=== PATIENT | female | born 1995 | race Caucasian/White ===

== ENCOUNTER 2017-06-08 09:34 | Emergency (ER) | payer BC, OTHER ==
[2017-06-08 09:39] VITALS: BP 140/91
--- NOTE | 2017-06-08 12:58 | ED ---
Back Pain - HPI Summary HPI Summary: Patient here with right lower back pain while bending and twisting to lift a box of coffee while at work yesterday. Noticed some mild pain but was able to continue working. Expressed that his back was little more sore as the night went on however was tolerable. He later engaged in intercourse and when bent forward into position with partner behind, reports back buckling and pain felt in back as well as in the lower abdomen. Denies nausea, vomiting, diarrhea, fevers, chills, radiating pain down into the buttock or leg, numbness, tingling , weakness, change in bowel or bladder habits, saddle paresthesia. Pain does radiate up into flank. 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 No vaginal or rectal bleeding reported - intercourse was consensual and not forceful. Has not had BM today and not passed any gas. Has not tried anything for pain prior to arrival. Admits to 50 pound weight loss recently and thinks body may be changing in regards to strength, flexibility, etc. - History of Current Complaint Chief Complaint: EDBackInjuryPain Stated Complaint: BACK PAIN Time Seen by Provider: 06/08/17 12:02 Hx Obtained From: Patient Pain Intensity: 8 - Allergies/Home Medications Allergies/Adverse Reactions: Allergies Allergy/AdvReac Type Severity Reaction Status Date / Time No Known Allergies Allergy Verified 07/23/13 08:45 PMH/Surg Hx/FS Hx/Imm Hx Previously Healthy: Yes Endocrine/Hematology History: Denies: Hx Anticoagulant Therapy, Hx Blood Disorders Musculoskeletal History: Reports: Other Musculoskeletal History - 50lb weight loss recently Denies: Hx Back Problems - Surgical History Surgery Procedure, Year, and Place: wisdom teeth Infectious Disease History: No Infectious Disease History: Denies: History Other Infectious Disease, Traveled Outside the [place] in Last 30 Days - Family History Known Family History: Positive: None - Social History Occupation: Employed Full-time 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 Negative: Vomiting, Diarrhea, Nausea Genitourinary: Negative Positive: Arthralgia, Myalgia, Decreased ROM Skin: Negative Neurological: Negative Positive: Anxious All Other Systems Reviewed And Are Negative: Yes Physical Exam Triage Information Reviewed: Yes Vital Signs On Initial Exam: Initial Vitals Temp Pulse Resp BP Pulse Ox 98.6 F 106 20 140/91 98 06/08/17 09:37 06/08/17 09:37 06/08/17 09:37 06/08/17 09:37 06/08/17 09:37 Vital Signs Reviewed: Yes Appearance: Positive: Well-Appearing, Pain Distress - lying on stretcher but has pain w/ transition from lying to sitting up/standing - ambulates well once upright, Obese Skin: Positive: Warm, Skin Color Reflects Adequate Perfusion, Dry Head/Face: Positive: Normal Head/Face Inspection Eyes: Positive: Normal, EOMI, Conjunctiva Clear ENT: Positive: Hearing grossly normal, Pharynx normal - mucosa moist Respiratory/Lung Sounds: Positive: Clear to Auscultation, Breath Sounds Present Cardiovascular: Positive: Normal, RRR Abdomen Description: Positive: No Organomegaly, Soft, Other: - generalized mild tenderness over lower ab/pelvis -Rt > Lt - no rebounding Musculoskeletal: Positive: Strength/ROM Intact - pt is able to transitin out pf bed but is slow and deliberate - pain w/ lumbar flexion, Pain @ - Rt QL TTP; spinous pp NTTP Neurological: Positive: Normal, Sensory/Motor Intact, Alert, Oriented to Person Place, Time, CN Intact II-III Psychiatric: Positive: Anxious Diagnostics - Vital Signs Vital Signs Temp Pulse Resp BP Pulse Ox 06/08/17 09:37 98.6 F 106 20 140/91 98 - Laboratory Diagnostic Studies Comment: CT abdomen and pelvis report reveals small amount of free fluid in the pelvis otherwise normal. Lumbar spine with mild degenerative changes w/ OA in facet joints. If sx persist, recommend MR outpt. Lab Statement: Any lab studies that have been ordered have been reviewed, and results considered in the medical decision making process. Back Pain Course/Dx - Diagnoses Provider Diagnoses: Lumbar strain Discharge - Discharge Plan Condition: Stable Disposition: HOME Prescriptions: Cyclobenzaprine TAB* [Flexeril 10 MG TAB*] 10 mg PO TID PRN #15 tab PRN Reason: Pain Ibuprofen TAB* [Motrin TAB* 800 MG] 800 mg PO Q8HR PRN #20 tab PRN Reason: Pain Patient Education Materials: Low Back Strain (ED) Forms: *Work Release Referrals: No Primary Care Phys,NOPCP [Primary Care Provider] - [facility] [place] [facility]FERRAL [Outside] Additional Instructions: Rest, ice alternating with heat, gentle stretches, and medications as directed/ needed. Work on core strengthening exercises once your back pain resolves - inquire with PCP or PT for guidance. Follow-up with PCP if symptoms persist - call today to schedule appointment. *If you develop numbness, tingling, weakness, change in bowel/bladder habits, return to ED
--- NOTE | 2017-06-08 14:08 | RAD ---
INDICATION: Low back pain after intercourse. COMPARISON: There are no prior studies available for comparison. TECHNIQUE: A CT scan of the abdomen and pelvis was performed without intravenous or oral contrast. Contiguous axial sections were obtained from the lung bases through the symphysis pubis. Images were reconstructed in the coronal and sagittal planes. FINDINGS: The lung bases are clear. No pleural effusion is present. The liver and spleen are within normal limits in size without significant focal abnormality on this noncontrast study. No calcified gallstones are seen. The pancreas appears to be within normal limits in size. The adrenal glands and kidneys are normal in size. No renal calculi or hydronephrosis is seen. The aorta is normal in caliber without significant calcific plaque. No significant enlarged retroperitoneal lymph nodes are seen. The stomach, small and large bowel appear nondistended. The appendix is within normal limits. There is mild descending and sigmoid diverticulosis without evidence for diverticulitis. The uterus is anteverted and normal in size. There is a small amount of free intraperitoneal fluid present dependently within the pelvis. No free intraperitoneal air is seen. No significant focal osseous abnormality is seen. IMPRESSION: THERE IS A SMALL AMOUNT OF FREE INTRAPERITONEAL FLUID IN THE PELVIS. THE STUDY IS OTHERWISE UNREMARKABLE.
--- NOTE | 2017-06-08 14:13 | RAD ---
INDICATION: Low back pain after intercourse. COMPARISON: There are no prior studies available for comparison. TECHNIQUE: Contiguous axial sections were obtained beginning above the 1 vertebra and continuing through the L5-S1 disc space. Images were reconstructed in the sagittal and coronal planes. FINDINGS: There is a mild lumbar scoliosis convex toward the right side. There is a prominent Schmorl's node in the superior endplate of the L4 vertebral body. No acute fracture is seen. At the L2-L3 level there is a mild broad-based disc bulge and mild hypertrophic changes within the facet joints. There is mild spinal canal narrowing. Neural foramen appear patent on both sides. It the L3-L4 level there is a mild broad-based disc bulge and mild hypertrophic changes within the facet joints. There is mild spinal canal narrowing. Neural foramen appear patent on both sides. At the L4-L5 level there is a mild broad-based disc bulge and mild hypertrophic changes within the facet joints. There is mild spinal canal narrowing and mild bilateral neural foraminal narrowing. At the L5-S1 level there is a mild broad-based is bulge with suggestion of a small right paramedian disc protrusion. There are moderate hypertrophic changes within the facet joints. No significant spinal canal or neural foraminal narrowing is seen. IMPRESSION: MILD DIFFUSE DEGENERATIVE DISC DISEASE AND FACET OSTEOARTHRITIS IF THE PATIENT'S SYMPTOMS PERSIST PERSIST RECOMMEND FOLLOW-UP MR IMAGING.
[2017-06-08 14:20] LABS: Urine Appearance Clear; Urine Blood Negative (Negative); Urine Color Yellow; Urine Ketones Negative (Negative); Urine Protein Negative (Negative); Urine Specific Gravity 1.016 (1.010-1.030); Urine Urobilinogen Negative (Negative)
[2017-06-08] MEDS ORDERED: Ibuprofen TAB* 800 MG PO ONE (14:42)
[2017-06-08] MEDS ORDERED: Diazepam TAB(*) 5 MG PO ONE (14:42)
== END 2017-06-08 15:41 | disposition home or self-care (01) ==
LOC: ED 09:34
DX: S39.012A Strain of muscle, fascia and tendon of lower back, initial encounter (principal); X58.XXXA Exposure to other specified factors, initial encounter; Y92.9 Unspecified place or not applicable; Y99.0 Civilian activity done for income or pay; F17.210 Nicotine dependence, cigarettes, uncomplicated; Z79.899 Other long term (current) drug therapy
CPT/HCPCS: 72131; 74176; 81003; 87086; 99282; A9270-GY

== ENCOUNTER 2018-01-09 15:46 | Emergency (ER) | payer OTHER ==
[2018-01-09 16:08] VITALS: BP 155/88
[2018-01-09] MEDS ORDERED: Ibuprofen TAB* 600 MG PO ONE (16:28)
--- NOTE | 2018-01-09 16:29 | UC ---
Upper Extremity HPI - HPI Summary HPI Summary: Pt is a 22 year old [id number] transgender patient presenting to with a chief complaint of left shoulder/collarbone and right knee pain due to injury on 01/07/18. The pt was intoxicated, was walking out of [facility] when he fell and hit his head on the pavement, and hit his L shoulder/collarbone on the curb, as well as falling off the bus onto his R knee later in the night. No LOC , No blood HEENT. Pt states later that night had 3-4 episodes of emesis - none since. He was queasy and confused for the rest of the night, and vomited when he got home, but did not vomit yesterday. He took Excedrin for the head pain yesterday with good relief, but none today. Pt states his head feels better. 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 Pt is RHD. no parestheis , no weakness. Pt also with discomfort right knee. Pt states has been walking, no limping. No h/o knee injury. No blood HEENT. Pt's Tdap UTD. 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 NKDA. Patients medications reviewed this visit. - History of Current Complaint Chief Complaint: UCHeadInjury Stated Complaint: HEAD INJURY Time Seen by Provider: 01/09/18 15:59 Hx Obtained From: Patient Onset/Duration: Sudden Onset, Lasting Days, Still Present Severity Initially: Moderate Severity Currently: Moderate Pain Intensity: 5 Pain Scale Used: 0-10 Numeric Location Of Pain: Is Discrete @ - R shoulder/collarbone, as well as L knee. Character: Aching Aggravating Factor(s): Movement Alleviating Factor(s): OTC Meds Associated Signs And Symptoms: Positive: Bruising Related History: Dominant Hand Right - Allergies/Home Medications Allergies/Adverse Reactions: Allergies Allergy/AdvReac Type Severity Reaction Status Date / Time No Known Allergies Allergy Verified 01/09/18 16:07 Home Medications: Home Medications NK [No Home Medications Reported] 01/09/18 [History Confirmed 01/09/18] PMH/Surg Hx/FS Hx/Imm Hx Previously Healthy: Yes Endocrine History: Other Other Endocrine History: HLD Other History Of: Negative For: Anticoagulant Therapy - Surgical History Surgical History: None Surgery Procedure, Year, and Place: wisdom teeth, double masectomy, chest reconstruction. - Family History Known Family History: Positive: Hypertension, Other - addiction/mental health issues, arthritis - Social History Occupation: Employed Part-time - aide at [employer] Lives: With Family Alcohol Use: Weekly Substance Use Type: Cocaine, Marijuana Smoking Status (MU): Current Every Day Smoker Type: Cigarettes Amount Used/How Often: 1/2-1 PPD Have You Smoked in the Last Year: No When Did the Patient Quit Smoking/Using Tobacco: 2 yrs Review of Systems Constitutional: Negative - fever Skin: Bruising, Other - abraison Musculoskeletal: Arthralgia - R knee, L shoulder/collarbone Neurological: Headache All Other Systems Reviewed And Are Negative: Yes Physical Exam - Summary Physical Exam Summary: Vital Signs Reviewed: Yes A+Ox3, no distress Eyes: Conjunctiva Clear, DAYSI. EOM intact and full ENT: Hearing grossly normal TM x 2 clear, mmoist, uvula midline, no exudate, no erythema no hemotymp, no septal hematoma Neck: Positive: Supple Respiratory: Positive: No respiratory distress, No accessory muscle use + CTA throughout no w/r Cardiovascular: RRR nl s1, s2 no m/r CBT <2 sec 2+ DP, PT abd soft + BS nt/nd no guarding, n+ on Musculoskeletal Exam: No pain c/t/l/s Full aROM c spine Pt with pain lateral aspect of collarbone at AC joint No crepitus Full extension, abduction, overhead with mild pain at AC joint + flex/ext elbow, pronate/supinate 5/5 grasp; + SLE + flex/ext knee, ankle + TTP medial aspect patella. No crepitusno edema neg anterior/posterior drawer, neg laxity lateral joint testing Neurological: Positive: Alert, + sensation throughout Psychological: Positive: Normal Response To Family Skin: Positive: no rash, Pt with non suturable abraison to right knee, left palm , contusion x 2 2x2cm each prox, lateral bicep Triage Information Reviewed: Yes Vital Signs: Initial Vital Signs Temp 98.5 F 01/09/18 15:58 Pulse 92 01/09/18 15:58 Resp 19 01/09/18 15:58 BP 155/88 01/09/18 15:58 Pulse Ox 99 01/09/18 15:58 Diagnostics - Radiology L clavicle XRAY Xray Interpretation: No Acute Changes - Unremarkable sternoclavicular and acromioclavicular alignment. Negative for clavicle fracture. Unremarkable soft tissue contours. Radiology Interpretation Completed By: Radiologist - ED physician has reviewed this report. L shoulder XRAY Xray Interpretation: No Acute Changes - Negative for fracture. Normal acromioclavicular and glenohumeral joint alignment. Unremarkable soft tissue contours Radiology Interpretation Completed By: Radiologist - ED physician has reviewed this report. R knee XRAY Xray Interpretation: No Acute Changes - Unremarkable R knee. Radiology Interpretation Completed By: Radiologist - ED physician has reviewed this report. Re-Evaluation - Re-Evaluation Second Eval Comment: reviewed images with pt. no fx. motrin/apap. ice. stretch. work note with restrictions Upper Extremity Course/Dx - Course Course Of Treatment: Blood pressure noted and patient informed to follow up with PCP. Pt with pain right knee along medial patella and left clavicle. Pt neurovascularly intact. Pt with full ROM. will give analgesia. wound care. imaging. reassess - Differential Dx/Diagnosis Provider Diagnoses: right knee contusion. left shoulder. contuion. abraison Discharge - Sign-Out/Discharge Documenting (check all that apply): Patient Departure All imaging exams completed and their final reports reviewed: Yes - Discharge Plan Condition: Stable Disposition: HOME Patient Education Materials: Contusion in Adults (ED), Abrasion (ED) Forms: *Work Release Referrals: [facility] [place] [facility] REFERRAL [Outside] Additional Instructions: - Okay to alternate ibuprofen (Advil, Motrin)600mg and Tylenol 1000mg every 3 hours for pain. Take with food. Do NOT take for more than 4-5 days. Do NOT take ibuprofen if you are taking Aleve - Wash wounds with warm, soapy water. Pat dry, cover with a thin layer of antibiotic ointment and bandage. Monitor your wounds for signs of infection - reddness, red streaking, odor, drainage - wear kavita wrap for comfort and support - Apply ice (wrapped in a towel) 20 minutes at time, 2-3 times a day. After 3 days, change to heat. After warming joints, slow gentle stretching exercises - Pain gets worse for the first 36-48 hours following injury - this is normal. - Contact the physician referral center to schedule a follow-up appointment. - Billing Disposition and Condition Condition: STABLE Disposition: Home - Attestation Statements Document Initiated by Stephanieibe: Yes Documenting Scribe: Judy Riggs Provider For Whom Stephanieibe is Documenting (Include Credential): Sarah Chau MD. Scribe Attestation: Judy Benoit, scribed for Sarah Chau MD. on 01/09/18 at 1856. Scribe Documentation Reviewed: Yes Provider Attestation: The documentation as recorded by the stephanieibeJudy accurately reflects the service I personally performed and the decisions made by me, Sarah Chau MD.
--- NOTE | 2018-01-09 17:09 | RAD ---
Indication: LEFT shoulder pain post fall 3 nights ago. Anterior shoulder pain. Comparison: Clavicle of the same date. Technique: Internal rotation AP, external rotation Grashey, scapular Y, axillary views LEFT shoulder REPORT AND IMPRESSION: #. Negative for fracture. Normal acromioclavicular and glenohumeral joint alignment. Unremarkable soft tissue contours
--- NOTE | 2018-01-09 17:09 | RAD ---
Indication: Fall, abrasion, contusion LEFT clavicle. Comparison: January 09, 2018 LEFT shoulder Technique: AP and cephalad oblique views LEFT clavicle. REPORT AND IMPRESSION: #. Unremarkable sternoclavicular and acromioclavicular alignment. Negative for clavicle fracture. Unremarkable soft tissue contours.
--- NOTE | 2018-01-09 17:09 | RAD ---
Indication: Right knee pain. 4 views of the right knee demonstrates no fracture or dislocation. No other bone or joint abnormality is identified. IMPRESSION: Unremarkable right knee.
== END 2018-01-09 17:30 | disposition home or self-care (01) ==
LOC: EDSEX 15:46 → UCEAST 15:46
DX: S80.01XA Contusion of right knee, initial encounter (principal); S40.012A Contusion of left shoulder, initial encounter; S80.211A Abrasion, right knee, initial encounter; S60.512A Abrasion of left hand, initial encounter; W18.30XA Fall on same level, unspecified, initial encounter; Y93.01 Activity, walking, marching and hiking; Y92.830 Public park as the place of occurrence of the external cause; F17.210 Nicotine dependence, cigarettes, uncomplicated
CPT/HCPCS: 99212; A9270-GY; G0463

== ENCOUNTER 2018-04-25 13:22 | Inpatient (IN) | payer SELFPAY ==
--- NOTE | 2018-04-25 14:01 | ED ---
Psychiatric Complaint - HPI Summary HPI Summary: This pt is a 22 y/o female presenting to [facility] c/o depression and SI today. 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 She notes she has SI thoughts, but denies SI plan. Denies HI. Pt has tried to commit suicide in the past, was 13 y/ o and tried to slit her wrists but the scissors were too dull. PMHx includes bipolar disorder, depression (diagnosed by Dr. Allen). Pt stopped seeing Dr. Allen 1 year ago. She does not take any medications for her depression. - History Of Current Complaint Chief Complaint: EDMentalHealth Time Seen by Provider: 04/25/18 13:51 Hx Obtained From: Patient Onset/Duration: Lasting Days, Still Present Timing: Days Severity Currently: Moderate Character: Depressed Aggravating Factor(s): Recent Stress Alleviating Factor(s): Nothing Associated Signs And Symptoms: Positive: Negative Related History: Positive For: Prior Psychiatric Issues Has Suicidal: Reports: Thoughts. Denies: With A Plan Has Homicidal: Denies: Thoughts, With A Plan Recent Stressor(s): hates her new job - Allergies/Home Medications Allergies/Adverse Reactions: Allergies Allergy/AdvReac Type Severity Reaction Status Date / Time bupropion [From Wellbutrin] AdvReac Altered Verified 04/25/18 14:27 Mental Status oxcarbazepine AdvReac Altered Verified 04/25/18 14:27 [From Trileptal] Mental Status PMH/Surg Hx/FS Hx/Imm Hx Endocrine/Hematology History: Reports: Hx Diabetes Denies: Hx Anticoagulant Therapy, Hx Blood Disorders Musculoskeletal History: Reports: Other Musculoskeletal History - 50lb weight loss recently Denies: Hx Back Problems Psychiatric History: Reports: Hx Depression, Hx Bipolar Disorder - Surgical History Surgery Procedure, Year, and Place: wisdom teeth, double masectomy, chest reconstruction. Infectious Disease History: No Infectious Disease History: Denies: History Other Infectious Disease, Traveled Outside the in Last 30 Days - Family History Known Family History: Positive: Hypertension, Other - addiction/mental health issues, arthritis - Social History Alcohol Use: Weekly Substance Use Type: Reports: Cocaine, Marijuana Hx Tobacco Use: Yes Smoking Status (MU): Current Every Day Smoker Type: Cigarettes Amount Used/How Often: 1/2-1 PPD Have You Smoked in the Last Year: No Review of Systems Negative: Fever, Chills Cardiovascular: Negative Respiratory: Negative Gastrointestinal: Negative Genitourinary: Negative Psychological: Other - POS: SI thoughts Positive: Depressed. Negative: Other - NEG: SI plan All Other Systems Reviewed And Are Negative: Yes Physical Exam - Summary Physical Exam Summary: VITAL SIGNS: Reviewed. GENERAL: Patient is a well-developed and nourished female. Patient is not in any acute respiratory distress. HEAD AND FACE: No signs of trauma. No ecchymosis, hematomas or skull depressions. No sinus tenderness. EYES: PERRLA, EOMI x 2, No injected conjunctiva, no nystagmus. EARS: Hearing grossly intact. Ear canals and tympanic membranes are within normal limits. MOUTH: Oropharynx within normal limits. NECK: Supple, trachea is midline, no adenopathy, no JVD, no carotid bruit, no c- spine tenderness, neck with full ROM. CHEST: Symmetric, no tenderness at palpation LUNGS: Clear to auscultation bilaterally. No wheezing or crackles. CVS: Regular rate and rhythm, S1 and S2 present, no murmurs or gallops appreciated. ABDOMEN: Soft, non-tender. No signs of distention. No rebound, no guarding, and no masses palpated. Bowel sounds are normal. EXTREMITIES: FROM in all major joints, no edema, no cyanosis or clubbing. NEURO: Alert and oriented x 3. No acute neurological deficits. Speech is normal and follows commands. SKIN: Dry and warm Triage Information Reviewed: Yes Vital Signs On Initial Exam: Initial Vitals Temp Pulse Resp BP Pulse Ox 98.9 F 113 18 138/100 98 04/25/18 13:25 04/25/18 13:25 04/25/18 13:25 04/25/18 13:25 04/25/18 13:25 Vital Signs Reviewed: Yes Diagnostics - Vital Signs Vital Signs Temp Pulse Resp BP Pulse Ox 04/25/18 13:25 98.9 F 113 18 138/100 98 - Laboratory Result Diagrams: 04/25/18 13:20 04/25/18 13:20 Lab Statement: Any lab studies that have been ordered have been reviewed, and results considered in the medical decision making process. Re-Evaluation - Re-Evaluation First Eval Re-Evaluation Time: 15:10 Comment: Pt is medically cleared. Course/Dx - Course Assessment/Plan: This pt is a 22 y/o female presenting to [facility] c/o depression and SI today. 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 She notes she has SI thoughts, but denies SI plan. Denies HI. Pt has tried to commit suicide in the past, was 13 y/o and tried to slit her wrists but the scissors were too dull. PMHx includes bipolar disorder, depression (diagnosed by Dr. Allen). Pt stopped seeing Dr. Allen 1 year ago. She does not take any medications for her depression. Blood work w/o a significant abnormality. She is medically cleared. She is awaiting for a [facility]. Patient is hemodynamically stable and A+O x 3. Patient was evaluated by Dr. Murguia, psychiatrist, and recommended admission to his services with a diagnosis of bipolar disorder. - Differential Dx/Clinical Impression Differential Diagnosis/HQI/PQRI: Positive: Anxiety, Depression, Suicidal Ideation Provider Diagnosis: Depression, Bipolar disorder Discharge - Sign-Out/Discharge Documenting (check all that apply): Patient Departure - Admit to [facility] - Discharge Plan Condition: Stable Disposition: PSYCHIATRIC FACILITY[place] - Billing Disposition and Condition Condition: STABLE Disposition: Psychiatric Facility [facility] - Attestation Statements Document Initiated by Scribe: Yes Documenting Scribe: Anneliese Rodriguez Provider For Whom John is Documenting (Include Credential): Vito Babcock MD Scribe Attestation: I, Anneliese Rodriguez, scribed for Vito Babcock MD on 04/25/18 at 2103. Scribe Documentation Reviewed: Yes Provider Attestation: The documentation as recorded by the Anneliese colvin accurately reflects the service I personally performed and the decisions made by me, Vito Babcock MD Status of Scribe Document: Viewed
[2018-04-25 14:21] LABS: ABS Basophils 0.1 10^3/ul (0-0.2); ABS Eosinophils 0.1 10^3/ul (0-0.6); ABS Lymphocytes 1.4 10^3/ul (1.0-4.8); ABS Monocytes 0.3 10^3/ul (0-0.8); ABS Neutrophils 5.9 10^3/ul (1.5-7.7); ABS Nucleated RBC 0 10^3/ul; Hematocrit 41 % (35-47); Hemoglobin 13.5 g/dl (12.0-16.0); Lymphocyte % 18.5 %; Mean Corpuscular HGB Conc 33 g/dl (31-36); Mean Corpuscular Hemoglobin 29 pg (27-31); Mean Corpuscular Volume 88 fL (80-97); Mean Platelet Volume 7.9 fL (7.4-10.4); Nucleated Red Blood Cells % 0; Platelet Count 322 10^3/ul (150-450); Red Blood Count 4.66 10^6/ul (4.00-5.40); Red Cell Distribution Width 13 % (10.5-15); White Blood Count 7.8 10^3/ul (3.5-10.8)
[2018-04-25 14:22] LABS: Urine Appearance Cloudy; Urine Bacteria Absent (Absent); Urine Bilirubin Negative (Negative); Urine Blood 3+ (Negative); Urine Color Yellow; Urine Glucose Negative (Negative); Urine Ketones Negative (Negative); Urine Nitrite Negative (Negative); Urine Protein Negative (Negative); Urine Red Blood Cell 2+(6-10/hpf) (Absent); Urine Specific Gravity 1.032 (1.010-1.030); Urine Urobilinogen Negative (Negative); Urine White Blood Cell Trace(0-5/hpf) (Absent)
[2018-04-25 14:49] LABS: Barbiturates Urine Screen None Detected (None Detect); Benzodiazepine Urine Screen Presumptive Positive (None Detect); Urine Cannabinoids Screen Presumptive Positive (None Detect)
[2018-04-25 14:51] LABS: ALT 25 U/L (7-52); AST 24 U/L (13-39); Albumin 4.3 g/dL (3.2-5.2); Albumin/Globulin Ratio 1.5 (1-3); Alkaline Phosphatase 87 U/L (34-104); Anion Gap 6 mmol/L (2-11); BUN/Creatinine Ratio 17.2 (8-20); Blood Urea Nitrogen 15 mg/dL (6-24); CO2 Carbon Dioxide 25 mmol/L (22-32); Calcium 9.1 mg/dL (8.6-10.3); Chloride 108 mmol/L (101-111); EGFR Non-African American 81.4 (>60); Globulin 2.8 g/dL (2-4); Glucose 99 mg/dL (70-100); Potassium 3.8 mmol/L (3.5-5.0); Sodium 139 mmol/L (135-145); Total Protein 7.1 g/dL (6.4-8.9)
[2018-04-25 14:52] LABS: Alcohol < 10 mg/dL (<10); Salicylate < 2.50 mg/dL (<30)
[2018-04-25 15:00] LABS: TSH (Thyroid Stimulating Horm) 0.64 mcIU/mL (0.34-5.60)
[2018-04-25 15:14] LABS: Acetaminophen 0 mcg/mL
[2018-04-25] MEDS ORDERED: Acetaminophen TAB* 325 MG PO PRN (21:26)
[2018-04-25] MEDS ORDERED: Al Hydrox/Mg Hydrox/Simet LIQ* 30 ML UDC PO PRN (21:27)
[2018-04-25] MEDS ORDERED: Nicotine GUM* 2 MG PO PRN (21:28)
[2018-04-25] MEDS ORDERED: Mouth Piece, Nicotine* 1 EACH CARTRIDGE INH PRN (21:29)
[2018-04-25] MEDS: Nicotine Inhaler* 10 MG AMP INH PRN (23:07)
[2018-04-26] MEDS: Multivitamins/Minerals TAB PO SCH (08:14)
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
[2018-04-26] MEDS: Lithium Carbonate TAB* 300 MG PO SCH (20:17)
[2018-04-26] MEDS ORDERED: Prazosin CAP* 1 MG PO SCH (21:00)
[2018-04-26] MEDS: Ibuprofen TAB* 400 MG PO PRN (23:41)
[2018-04-27] MEDS: Multivitamins/Minerals TAB PO SCH (08:42)
[2018-04-27] MEDS: Lithium Carbonate TAB* 300 MG PO SCH (08:42)
[2018-04-27] MEDS: Nicotine Inhaler* 10 MG AMP INH PRN (08:42)
[2018-04-27 08:44] VITALS: BP 128/77
[2018-04-27] MEDS: Ibuprofen TAB* 400 MG PO PRN (08:45)
[2018-04-27] MEDS ORDERED: Venlafaxine EXT RELEASE CAP* 75 MG PO SCH (09:00)
--- NOTE | 2018-05-01 13:34 | DS ---
CC: [facility] DATE OF ADMISSION: 04/25/2018. DATE OF DISCHARGE: 04/27/2018. PROVIDER: Nga Grewal NP in Psychiatry. SUPERVISING PHYSICIAN: Dr. Magno Quinonez (dictated by Nga Grewal NP). DIAGNOSES: AXIS I: Major depressive disorder. AXIS II: Deferred. CONDITION AT THE TIME OF DISCHARGE: Improved, psychiatrically cleared, stable, participated in some groups, was social with peers. He has done well here psychiatrically. He tolerated the restart of meds very well. He is going to see [facility]. MENTAL STATUS EXAM AT THE TIME OF DISCHARGE: Justo is calm, cooperative, and makes good eye contact. He is alert and oriented times three. His grooming is good. His speech pace is normal. Thought processes are logical. He is not psychotic or delusional. He denies AH, VH, SI and HI. Insight and judgment are good. He is willing to follow-up and urged to see a therapist. DISCHARGE INSTRUCTIONS TO THE PATIENT: A. Medications: Ibuprofen 400 p.o. q.6 hours prn pain, dispensed 120; Lookingglass Carbonate 300 mg b.i.d., dispensed 60; nicotine gum 2 mg q.2 hours prn craving, dispensed 200; Prazosin 1 mg at bedtime, dispensed 30; Venlafaxine 75 mg daily, dispensed 30. B. Diet: Regular. C. Activities: As tolerated. Justo is a smoker, but he has declined a referral to the [facility] Smokers Quitline at this time. If he decides to access this free service in the future, he contact the Quitline toll free at . There are no studies pending at the time of discharge. D. Follow-up care: He has an appointment with [facility] on 05/04/2018 at 2:00 p.m. and another on 05/11/2018 at 9:00 a.m. He is also referred to the [facility] [place] on [address], but he has declined that referral. He has also been referred to the [facility]. E. Substance abuse follow-up: He was referred but declined substance abuse treatment and medication. HOSPITAL COURSE - PART A: Chief complaint: "I have chronic suicidal ideation, but I am really afraid there is going to be nothing when I ." The patient is a 22-year-old female to male transgendered single person with a history of bipolar affective disorder that was diagnosed at age 12 who arrived bought in by a friend and is here on a 9.39 status following threats to kill himself and cutting on his arm and his thigh. Justo has been diagnosed as bipolar since age 12 or [address] Allen. He was seen for years at [facility]. He did find an effective medication regime, but decided to stop it, even though it was working. Justo is currently irritable. He is taking risks such as having "new random sex partners." He cannot sleep well. He sleeps maybe an hour or he crashes after 13 hours. He cries a lot, including at work, so that they send him home. 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 He finds it difficult to work because one day he cries uncontrollably and other days he worries that he will hurt someone when he is transferring them because he feels so strong. At this point, it appears he is experiencing mixed episode with indiscretion, some grandiosity, increased activity, sleep deficit, as well as lack of interest, significant guilt, inability to concentrate, appetite disruption, and suicidal ideation. HOSPITAL COURSE - PART B: Psychiatric treatment was rendered. The patient was admitted to the Adult [facility]al Health Unit and placed on 15 minute checks for safety. Justo did well on the unit and went to some groups and interacted with peers. He tolerated the restart of medications. We restarted Lookingglass, Prazosin , and Venlafaxine. The ibuprofen was started for pain after he was diagnosed with arthritis by another doctor outside the hospital. He wanted to leave the unit rapidly as he discovered he did not have insurance and was unable to pay for his stay here, which increased his distress significantly and interfered with his continued wellness. We did manage to get him connected with an insurance navigator who did get him insurance that will be starting in May. No consults were entered. We did not meet with his family, but he was very eager to leave and he believed that his family would be happy to see him home. In the end, he is much improved with an apparent improved affect, increased interest in living, and significantly less guilt. NGA GREWAL, PROFESSOR OF FOREST PLANNING [id number]/[facility] #: [id number] [facility] HOSPITALHenri
== END 2018-04-27 11:25 | disposition home or self-care (01) | DRG 885 ==
LOC: ED 13:22 → BSU 20:41
PROVIDERS: ADMIT Psychiatry & Neurology Psychiatry; ATTEND Psychiatry & Neurology Psychiatry
DX: F31.9 Bipolar disorder, unspecified (principal); R45.851 Suicidal ideations; E11.9 Type 2 diabetes mellitus without complications; F17.210 Nicotine dependence, cigarettes, uncomplicated; F64.0 Transsexualism; M19.90 Unspecified osteoarthritis, unspecified site; F43.10 Post-traumatic stress disorder, unspecified; Z72.89 Other problems related to lifestyle; Z88.8 Allergy status to other drugs, medicaments and biological substances; Z82.49 Family history of ischemic heart disease and other diseases of the circulatory system; Z82.61 Family history of arthritis; Z90.10 Acquired absence of unspecified breast and nipple
CPT/HCPCS: 36415; 80053; 80307; 80320; 80329; 81003; 81015; 83036; 84443; 84702; 85025; 87086; 99222; 99238; 99284; A9270-GY; G0480

== ENCOUNTER 2018-05-16 17:15 | Emergency (ER) | payer OTHER ==
--- OUTSIDE RECORDS SUMMARY | 2018-05-16 17:47 | XMS REPORT | Continuity of Care Document ---
:1995 Author Organization [facility] Address [address], [place] [id number] Phone Care Team Providers Name Role Phone Laura Griffin NP Unavailable Unavailable Allergies, Adverse Reactions, Alerts Substance Reaction Status No Known Allergies Active Medications Medication Instructions Dosage Effective Dates Status Comments (start - stop) ibuprofen 400 mg 1-2 tab po q 6-8 hrs - Active tablet prn pain (#10) Problems Condition Effective Dates (start - Clinical Status Comments stop) Human immunodeficiency virus [HIV] - counseling Encntr screen for dis of the bld[facility]bld[facility]form org[facility] Encounter for test, result negative Excessive and frequent menstruation with regular cycle Encounter for oth general cnsl and advice on contraception Encntr screen for infections w sexl mode of transmiss Encounter for test, result negative Human immunodeficiency virus [HIV] - counseling Encounter for screening for human - immunodeficiency virus Encounter for oth general cnsl and advice on contraception Encntr screen for infections w sexl mode of transmiss Encntr screen for infections w sexl mode of transmiss Contact w and exposure to infect w a sexl mode of transmiss Encounter for oth general cnsl and advice on contraception Encntr screen for infections w sexl mode of transmiss Contact w and exposure to infect w a sexl mode of transmiss Anemia, Screening Unspecified endocrine disorder Anemia, Screening Unspecified endocrine disorder Unspecified endocrine disorder Anemia, Screening Unspecified endocrine disorder Unspecified endocrine disorder Unspecified endocrine disorder Unspecified endocrine disorder Procedures Procedure Date PREVENTIVE COUNSELING, Under 8 Minutes HEMOGLOBIN URINE TEST OFFICE/OUTPATIENT VISIT, EST OTHER Medical Services 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 STI IBUPROFEN 400 MG TAB #10 CHYLMD DNA, AMP PROBE N.GONORRHOEAE, DNA, AMP PROB Results Test Name Date and Time Measure Units Reference Range Abnormal Flag Status Comments Panel Description: C trach DNA XXX Ql PCR Final Urine CT/GC Negative N Final Performed Combo - CT 00:00:00 by:
&emsp;&ensp;CDD ([id number])

Panel Description: Amplified GC - Urine Final Urine CT/GC Negative N Final : No

Performed Combo - GC 00:00:00 by:
&emsp;&ensp;CDD ([id number])

Panel Description: High Sensitivity Urine Test Final High Sensitivity Urine 11:52:39 NegativeInternal Quality Final Test Control: Positive Panel Description: Hemoglobin Final Hemoglobin 11:52:07 14 gm/dL Final Advance Directives Directive Yes / No Effective Date File Name No information Encounters Encounter Practice Location Reason(s) Diagnoses Date Provider Providers Description For Visit Copied on Encounter OFFICE/OUTPA [facility] Abnormal Human Elias Referring TIENT VISIT, [facility] [place] Vaginal immunodeficiency 8 Laura. 620 Provider: EST [facility] Bleeding virus [HIV] [address] Alexis Cannon (chief counselingEncntr [facility], [facility] [place], 620 complaint) screen for dis of [place], [place], [address], [address], [place], , [place], [facility] [place]/[place], [address]. [place], mechnsmEncounter [id number], for [place] test, result tel:[phone] negativeExcessive [id number] and frequent menstruation with regular cycleEncounter for oth general cnsl and advice on contraceptionEncn tr screen for infections w sexl mode of transmiss [facility] Encounter for Nov- [place] Referring [facility] [place] test, Laura. 620 Provider: [place] result [address] [place] Laura Finger negativeHuman , [place], [address] [place], 620 immunodeficiency [place], [place] virus [HIV] [place], [address], [address], [place], [place], [place], [place], [address]. [place], [place] for screening [id number], for human [place] immunodeficiency tel:[phone] virusEncounter [phone] for oth general cnsl and advice on contraceptionEncn tr screen for infections w sexl mode of transmiss [facility] Encntr screen for Mar- [place] Referring Parenthood [place] infections w sexl - [place]. [address] Provider: [place] mode of 8 [facility], [place] Finger transmissContact [place], [place], [facility], 620 [place], [address]. [address] [place] infect w a sexl tel:[phone] [facility], [address], [place], mode of [id number] [place], [place], [place], transmissEncounte [address]. [id number], r for oth general tel:[phone] [place] cnsl and advice [id number] tel:[phone] on contraception [phone] [facility] Encntr screen for Mar- P[facility] [place] infections w sexl . [place] mode of 5 [address] [place] Finger transmissContact , [facility], [address] w and exposure to [place], [place], [address]. , [place], mode of transmiss tel:+[phone] [place], [id number], [place] tel:[phone] [facility] Anemia, [place] [facility] [place] ScreeningUnspecif . 620 [place] ied endocrine 5 [address] [place] Finger disorder , [facility], [address] [place], [place], [address]. , [place], tel:+1-60 [place], [id number], [place] tel:[phone] [facility] Anemia, Sep-0 [place] [place] ScreeningUnspecif 4-201 Becky. 620 [place] ied endocrine 4 [address] [place] Finger disorder [facility], [address] [place] [address], [place], [address]. [facility], tel:+1-60 [place], [id number], [place] tel:[phone] [facility] Unspecified May-2 [place] [place] endocrine 9-201 Becky. 620 [place] disorder [address] [place] [address], [facility], [address] [place] [address], [place], [address]. [facility], tel:+1-60 [place], [id number], [place] tel:[phone] [facility] Anemia, Mar-2 [facility] [place] ScreeningUnspecif 7-201 Becky. 620 [place] ied endocrine 4 [address] [place] Finger disorderUnspecifi [facility], [facility] ed endocrine [place], [place], [address]. [facility], tel:+1-60 [place], [id number], [place] tel:[phone] [facility] Unspecified Mar-0 [employer] [facility] [place] endocrine 5-201 Davida. 620 Provider: [place] disorder 4 [place] NURSE OR LITZY [address], [facility]. [facility], [address] [place] [address], [place], [address]. [facility], tel:+1-60 [place], [id number], [place] tel:[phone] [facility] Unspecified Feb-2 [facility] [place] endocrine 7-201 Becky. 620 [place] disorder [address] [place] [address], [facility], [address] [place] [address], [place], [address]. [facility], tel:+1-60 [place], [phone], [place] tel:[phone] [facility] Feb-2 [facility] [place] 0-201 Jonna. 620 [place] [address] [place] [address] [facility], [address] [place], [place], [address]. [facility], tel:+1-60 [place], [phone], [place] tel:[phone] Family History Family Member Diagnosis Age At Onset No information Immunizations Vaccine Date Status Comments MMR administered Source: New Immunization Record HPV administered Source: New Immunization Record Hepatitis B administered Source: New Immunization Record Hepatitis A administered Source: New Immunization Record Payers Payer name Insurance type Covered constitution party ID Authorization(s) FPBP PRESUMPTIVE ELIGIBILITY [id number] Social History Type Description Quantity Date Captured Comments Alcohol Use Details Unknown Caffeine Use Details Unknown Tobacco Use Status Unknown Smoking Status Never smoker Non-Smoking Tobacco : No Details Available : No Details Available 2018 Use Details Sex Female Vital Signs Date / Height Weight BMI Pulse Blood Temperature Respiratory Body Head BMI Pulse Inhaled Time: Rate Pressure Rate Surface Circumference percentile Ox Ox Area 148/78 2019 mm[Hg] 11:45 AM Chief Complaint And Reason For Visit Most recent encounter only, dated '04/25/2018 11:20'. Abnormal Vaginal Bleeding (chief complaint). Description: Onset: 1 week ago. Severity level is 5. Location/source of the bleeding is uterine. The patient describes it as clotting. Frequency: menorrhagia. Relieving factors include Has not tried anything. Associated symptoms include bloating, cramps, dizziness and fatigue. Pertinent negatives include abdominal pain, back pain, diarrhea, dyspnea, headache, nausea and Image on phone showed scant endometrial tissue. Additional information: Pt keeps track of cycles. Roughly 25 days apart and 5 days in length. 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 On menses now. Heavy and painful. PW. Reason For Referral Reason For Referral No information Plan Of Treatment Date Type Action Status No information History Of Present Illness Encounter Date Complaint History Of Present Illness Abnormal Vaginal Bleeding Onset: 1 week ago. Severity level is 5. Location/source of the bleeding is uterine. The patient describes it as clotting. Frequency: menorrhagia. Relieving factors include Has not tried anything. Associated symptoms include bloating, cramps, dizziness and fatigue. Pertinent negatives include abdominal pain, back pain, diarrhea, dyspnea, headache, nausea and Image on phone showed scant endometrial tissue. Additional information: Pt keeps track of cycles. Roughly 25 days apart and 5 days in length. 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 On menses now. Heavy and painful. PW. Functional Status Date Functional Assessment No information Medications Administered Medication Instructions Dosage Effective Dates (start - stop) Status Comments No information Instructions Date Instruction Additional Information No information Assessments Type Assessment Date assessment Human immunodeficiency virus [HIV] counseling assessment Encntr screen for dis of the bld/bld-form org/immun mechnsm assessment Encounter for test, result negative assessment Excessive and frequent menstruation with regular cycle assessment Encounter for oth general cnsl and advice on contraception 2018 assessment Encntr screen for infections w sexl mode of transmiss Goals Health Concern Goal Type Priority Status Date No information Medical Equipment Description Device [place] Device Identifier Effective Dates (start - stop ) Status No information Mental Status Date Cognitive Assessment Normal Orientation Health Concerns Observation Date No information Concern Status Date No information
[2018-05-16] MEDS ORDERED: Ketorolac TAB * 10 MG TAB PO ONE (20:02)
--- NOTE | 2018-05-16 21:19 | ED ---
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 States pain radiates down left leg only when walking. Denies incontinence, urinary retention any other pain injury or symptoms. Ankle history is none. - History of Current Complaint Chief Complaint: EDBackInjuryPain Stated Complaint: BACK PAIN Time Seen by Provider: 05/16/18 19:37 Hx Obtained From: Patient Onset/Duration: Sudden Onset Onset/Duration: Started Hours Ago Timing: Constant Severity Initially: Moderate Severity Currently: Moderate Pain Intensity: 6 Pain Scale Used: 0-10 Numeric Character: Sharp, Aching, Throbbing Aggravating Symptom(s): Movement, Walking Alleviating Symptom(s): Rest, Position Associated Signs And Symptoms: Positive: Negative - Allergies/Home Medications Allergies/Adverse Reactions: Allergies Allergy/AdvReac Type Severity Reaction Status Date / Time bupropion [From Wellbutrin] AdvReac Altered Verified 04/25/18 14:27 Mental Status oxcarbazepine AdvReac Altered Verified 04/25/18 14:27 [From Trileptal] Mental Status PMH/Surg Hx/FS Hx/Imm Hx Endocrine/Hematology History: Reports: Hx Diabetes - insulin resistant Denies: Hx Anticoagulant Therapy, Hx Blood Disorders Respiratory History: Reports: Hx Pneumonia GI History: Reports: Hx Gastrointestinal Bleed History: Denies: Hx Dialysis Musculoskeletal History: Reports: Hx Arthritis, Other Musculoskeletal History - spinal disc degeneration Denies: Hx Back Problems Sensory History: Denies: Hx Contacts or Glasses, Hx Hearing Aid Opthamlomology History: Denies: Hx Contacts or Glasses EENT History: Denies: Hx Deafness Neurological History: Denies: Hx Dementia Psychiatric History: Reports: Hx Anxiety, Hx Eating Disorder, Hx Depression, Hx Panic Disorder, Hx Post Traumatic Stress Disorder - cptsd, Hx Inpatient Treatment, Hx Community Mental Health Tx, Hx Bipolar Disorder, Hx Suicide Attempt, Hx of Violent Episodes Against Others, Hx Substance Abuse - Surgical History Surgery Procedure, Year, and Place: wisdom teeth, double masectomy, chest reconstruction. Infectious Disease History: No Infectious Disease History: Denies: History Other Infectious Disease, Traveled Outside the [place] in Last 30 Days - Family History Known Family History: Positive: None, Hypertension, Other - addiction/mental health issues, arthritis - Social History Alcohol Use: Weekly Substance Use Type: Reports: Cocaine, Marijuana Substance Use Comment - Amount & Last Used: marijuana last used 04/25/18, cocaine last used 2 weeks ago Hx Tobacco Use: Yes Smoking Status (MU): Current Every Day Smoker Type: Cigarettes Amount Used/How Often: 1/2-1 PPD Have You Smoked in the Last Year: No Review of Systems Constitutional: Negative Eyes: Negative ENT: Negative Cardiovascular: Negative Respiratory: Negative Gastrointestinal: Negative Genitourinary: Negative Musculoskeletal: Other Skin: Negative Neurological: Negative Psychological: Normal All Other Systems Reviewed And Are Negative: Yes Physical Exam - Summary Physical Exam Summary: No tenderness to palpation along the spine. Mild tenderness to palpation along left paraspinal muscles of the lumbar spine. No tenderness to palpation of left leg. Patient flexes and extends bilateral hips without any indication of pain. PMS intact distally. Triage Information Reviewed: Yes Vital Signs On Initial Exam: Initial Vitals Temp Pulse Resp BP Pulse Ox 99.2 F 115 20 135/90 96 05/16/18 17:27 05/16/18 17:27 05/16/18 17:27 05/16/18 17:27 05/16/18 17:27 Vital Signs Reviewed: Yes Appearance: Positive: Well-Appearing Skin: Positive: Warm Head/Face: Positive: Normal Head/Face Inspection Eyes: Positive: Normal Neck: Positive: Supple Respiratory/Lung Sounds: Positive: Clear to Auscultation Cardiovascular: Positive: Normal Abdomen Description: Positive: Nontender Musculoskeletal: Positive: Normal Neurological: Positive: Normal Psychiatric: Positive: Normal AVPU Assessment: Alert - [place] Coma Scale Best Eye Response: 4 - Spontaneous Best Motor Response: 6 - Obeys Commands Best Verbal Response: 5 - Oriented Coma Scale Total: 15 Diagnostics - Vital Signs Vital Signs Temp Pulse Resp BP Pulse Ox 05/16/18 19:15 98.8 F 98 16 131/93 98 05/16/18 17:27 99.2 F 115 20 135/90 96 - Laboratory Lab Statement: Any lab studies that have been ordered have been reviewed, and results considered in the medical decision making process. 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 States pain radiates down left leg only when walking. Denies incontinence, urinary retention any other pain injury or symptoms. Ankle history is none. Physical exam: No tenderness to palpation along the spine. Mild tenderness to palpation along left paraspinal muscles of the lumbar spine. No tenderness to palpation of left leg. Patient flexes and extends bilateral hips without any indication of pain. PMS intact distally. Patient ambulatory. Vital signs within normal limits. Patient given by mouth Toradol. Patient states he wants to go home asked for work note. - Diagnoses Provider Diagnoses: Back pain Discharge - Sign-Out/Discharge Documenting (check all that apply): Patient Departure - Discharge Plan Condition: Stable Disposition: HOME Patient Education Materials: Low Back Strain (ED), Lower Back Exercises (ED) Forms: *Work Release Referrals: No Primary Care Phys,NOPCP [Primary Care Provider] - Additional Instructions: Take ibuprofen for pain. Follow-up with primary care. Return to the ED for any new or worsening symptoms - Billing Disposition and Condition Condition: STABLE Disposition: Home
[2018-05-16 21:36] VITALS: BP 151/113
== END 2018-05-16 21:36 | disposition home or self-care (01) ==
LOC: ED 17:15
DX: M54.5 Low back pain (principal); Z88.8 Allergy status to other drugs, medicaments and biological substances; F17.210 Nicotine dependence, cigarettes, uncomplicated
CPT/HCPCS: 99282

== ENCOUNTER 2018-06-07 15:56 | Emergency (ER) | payer BC, OTHER ==
[2018-06-07 16:14] VITALS: BP 154/107
--- NOTE | 2018-06-07 16:58 | UC ---
Abdominal Pain Female HPI - HPI Summary HPI Summary: Pt presents with c/o intermittent abdominal pain, painful diarrhea, occasional hard stools, BRBPR over the last several years. Today began with painful diarrhea. Denies fever or chills, denies known hx of IBS, crohns , diverticulitis or colitis. Pt does have hx of ovarian cysts. Pt is transitioning to be male - History of Current Complaint Chief Complaint: UCGI Stated Complaint: STOMACH ISSUES Time Seen by Provider: 06/07/18 16:38 Hx Obtained From: Patient Hx Last Menstrual Period: 05/26/18 ?: No Onset/Duration: Gradual Onset, Lasting Weeks, Still Present Timing: Intermittent Episodes Lasting: Severity Initially: Moderate Severity Currently: Moderate Pain Intensity: 7 Location: Diffuse Radiates: No Character: Cramping, Dull, Sharp Aggravating Factor(s): Nothing Alleviating Factor(s): Nothing Associated Signs and Symptoms: Positive: Negative - Risk Factors Ectopic Risk Factor: Negative Ovarian Torsion Risk Factor: Ovarian Cysts/Tumors Allergies/Adverse Reactions: Allergies Allergy/AdvReac Type Severity Reaction Status Date / Time bupropion [From Wellbutrin] AdvReac Altered Verified 06/07/18 16:14 Mental Status oxcarbazepine AdvReac Altered Verified 06/07/18 16:14 [From Trileptal] Mental Status PMH/Surg Hx/FS Hx/Imm Hx Previously Healthy: Yes Other History Of: Negative For: Anticoagulant Therapy - Surgical History Surgical History: Yes Surgery Procedure, Year, and Place: wisdom teeth, double masectomy, chest reconstruction. - Family History Known Family History: Positive: None, Hypertension, Other - addiction/mental health issues, arthritis - Social History Occupation: Employed Full-time Lives: With Family Alcohol Use: Weekly Substance Use Type: Cocaine, Marijuana Substance Use Comment - Amount & Last Used: marijuana last used 04/25/18, cocaine last used 2 weeks ago Smoking Status (MU): Current Every Day Smoker Type: Cigarettes Amount Used/How Often: 1/2-1 PPD Have You Smoked in the Last Year: No When Did the Patient Quit Smoking/Using Tobacco: 2 yrs - Immunization History Most Recent Influenza Vaccination: February 2018 Most Recent Pneumonia Vaccination: never Review of Systems All Other Systems Reviewed And Are Negative: Yes Constitutional: Positive: Negative Skin: Positive: Negative Eyes: Positive: Negative ENT: Positive: Negative Respiratory: Positive: Negative Cardiovascular: Positive: Negative Gastrointestinal: Positive: Abdominal Pain, Diarrhea Genitourinary: Positive: Negative Motor: Positive: Negative Neurovascular: Positive: Negative Musculoskeletal: Positive: Negative Neurological: Positive: Negative Psychological: Positive: Negative Is Patient Immunocompromised?: No Physical Exam Triage Information Reviewed: Yes Appearance: Well-Appearing, Obese Vital Signs: Initial Vital Signs Temp 98.2 F 06/07/18 16:08 Pulse 88 06/07/18 16:08 Resp 18 06/07/18 16:08 BP 154/107 06/07/18 16:08 Pulse Ox 99 06/07/18 16:08 Vital Signs Reviewed: Yes Eye Exam: Normal ENT Exam: Normal Dental Exam: Normal Neck exam: Normal Respiratory Exam: Normal Cardiovascular Exam: Normal Abdominal Exam: Normal Abdomen Description: Positive: Other: - RLQ tenderness Bowel Sounds: Positive: Present Musculoskeletal Exam: Normal Neurological Exam: Normal Psychological Exam: Normal Skin Exam: Normal Abd Pain Female Course/Dx - Differential Dx/Diagnosis Differential Diagnosis: Appendicitis, Ovarian Cyst, Urinary Tract Infection Provider Diagnosis: Abdominal pain Discharge - Sign-Out/Discharge Documenting (check all that apply): Patient Departure All imaging exams completed and their final reports reviewed: No Studies - Discharge Plan Condition: Stable Disposition: HOME Patient Education Materials: Abdominal Pain (ED) Forms: *Work Release Referrals: [facility] [Outside] - As Soon As Possible No Primary Care Phys,NOPCP [Primary Care Provider] - Additional Instructions: PLEASE ESTABLISH CARE WITH A PRIMARY CARE PROVIDER SOON POSSIBLE. IF YOUR SYMPTOMS WORSEN PLEASE SEEK CARE AT THE CLOSEST EMERGENCY ROOM. - Billing Disposition and Condition Condition: STABLE Disposition: Home
== END 2018-06-07 17:07 | disposition home or self-care (01) ==
LOC: UCEAST 15:56
DX: R10.9 Unspecified abdominal pain (principal); F17.210 Nicotine dependence, cigarettes, uncomplicated; Z88.8 Allergy status to other drugs, medicaments and biological substances
CPT/HCPCS: 99211; G0463

== ENCOUNTER 2018-06-20 22:34 | Emergency (ER) | payer BC ==
[2018-06-20 22:43] VITALS: BP 143/82
--- NOTE | 2018-06-21 00:03 | ED ---
GI/ HPI - HPI Summary HPI Summary: Pt is a 23 y/o M presenting to the ED with a chief complaint of bleeding from his rectum. The pt reports the bleeding has been intermittent for "quite a while " but tonight it was onset around 1999. Typically, he either has thin, soft stools, no stools, or extreme diarrhea. Presently he has not had a bowel movement but he has had blood coming from his rectum. Pt has been checked for hemorrhoids and he had no external ones. Pt reports gas pain. Pt denies pain in rectum or dizziness. - History of Current Complaint Chief Complaint: EDGIBleed Time Seen by Provider: 06/20/18 23:44 Stated Complaint: BLEEDING WHERE I SHOULDNT BE BLEEDING PER PT Hx Obtained From: Patient Hx Last Menstrual Period: 05/26/18 Onset/Duration: Started Days Ago, Still Present Timing: Constant, Lasting Days Severity: Moderate Current Severity: Moderate Pain Intensity: 2 Location of Pain: Diffuse Pain Characteristics: Other: - "gas pains" Associated Signs and Symptoms: Positive: Negative - pain in rectum, Abdominal Pain. Negative: Dizziness, External Hemorrhoid Aggravating Factor(s): Bowel Movement Alleviating Factor(s): Nothing - Additional Pertinent History Primary Care Physician: [id number] - Allergy/Home Medications Allergies/Adverse Reactions: Allergies Allergy/AdvReac Type Severity Reaction Status Date / Time bupropion [From Wellbutrin] AdvReac Altered Verified 06/20/18 22:37 Mental Status oxcarbazepine AdvReac Altered Verified 06/20/18 22:37 [From Trileptal] Mental Status Home Medications: Home Medications [place] Carbonate TAB* 300 mg PO 0600 06/20/18 [History Confirmed 06/20/18] Bir[place] Carbonate TAB* 600 mg PO 2100 06/20/18 [History Confirmed 06/20/18] PMH/Surg Hx/FS Hx/Imm Hx Previously Healthy: No Endocrine/Hematology History: Reports: Hx Diabetes - insulin resistant Denies: Hx Anticoagulant Therapy, Hx Blood Disorders, Hx Thyroid Disease Cardiovascular History: Denies: Hx Hypertension Respiratory History: Reports: Hx Pneumonia Denies: Hx Asthma, Hx Chronic Obstructive Pulmonary Disease (COPD) GI History: Reports: Hx Gastrointestinal Bleed Denies: Hx Ulcer History: Denies: Hx Dialysis Musculoskeletal History: Reports: Hx Arthritis, Other Musculoskeletal History - spinal disc degeneration Denies: Hx Back Problems Sensory History: Denies: Hx Contacts or Glasses, Hx Deafness, Hx Hearing Aid Opthamlomology History: Denies: Hx Contacts or Glasses Neurological History: Denies: Hx Dementia Psychiatric History: Reports: Hx Anxiety, Hx Eating Disorder, Hx Depression, Hx Panic Disorder, Hx Post Traumatic Stress Disorder - cptsd, Hx Inpatient Treatment, Hx Community Mental Health Tx, Hx Bipolar Disorder, Hx Suicide Attempt, Hx of Violent Episodes Against Others, Hx Substance Abuse - Surgical History Surgery Procedure, Year, and Place: wisdom teeth, double masectomy, chest reconstruction. Infectious Disease History: No Infectious Disease History: Denies: Hx Hepatitis, Hx Human Immunodeficiency Virus (HIV), History Other Infectious Disease, Traveled Outside the [place] in Last 30 Days - Family History Known Family History: Positive: Hypertension, Other - addiction/mental health issues, arthritis - Social History Alcohol Use: Weekly Hx Substance Use: Yes Substance Use Type: Reports: Cocaine, Marijuana Substance Use Comment - Amount & Last Used: marijuana last used 04/25/18, cocaine last used 2 weeks ago Hx Tobacco Use: Yes Smoking Status (MU): Current Every Day Smoker Type: Cigarettes Amount Used/How Often: 1/2-1 PPD Have You Smoked in the Last Year: No Review of Systems Negative: Fever Positive: Abdominal Pain, Other - blood in stool Neurological: Negative - dizziness All Other Systems Reviewed And Are Negative: Yes Physical Exam - Summary Physical Exam Summary: VITAL SIGNS: Reviewed. GENERAL: Patient is a well-developed and nourished male who is lying comfortable in the stretcher. Patient is not in any acute respiratory distress. HEAD AND FACE: No signs of trauma. No ecchymosis, hematomas or skull depressions. No sinus tenderness. EYES: PERRLA, EOMI x 2, No injected conjunctiva, no nystagmus. EARS: Hearing grossly intact. Ear canals and tympanic membranes are within normal limits. MOUTH: Oropharynx within normal limits. NECK: Supple, trachea is midline, no adenopathy, no JVD, no carotid bruit, no c- spine tenderness, neck with full ROM. CHEST: Symmetric, no tenderness at palpation LUNGS: Clear to auscultation bilaterally. No wheezing or crackles. CVS: Regular rate and rhythm, S1 and S2 present, no murmurs or gallops appreciated. ABDOMEN: Soft, non-tender. No signs of distention. No rebound no guarding, and no masses palpated. Bowel sounds are normal. EXTREMITIES: FROM in all major joints, no edema, no cyanosis or clubbing. NEURO: Alert and oriented x 3. No acute neurological deficits. Speech is normal and follows commands. SKIN: Dry and warm Rectal: There are no external hemorrhoids and no masses. There is a very mild tinge of blood on examination. Triage Information Reviewed: Yes Vital Signs On Initial Exam: Initial Vitals Temp Pulse Resp BP Pulse Ox 99.1 F 124 20 143/82 95 06/20/18 22:36 06/20/18 22:36 06/20/18 22:36 06/20/18 22:36 06/20/18 22:36 Vital Signs Reviewed: Yes Diagnostics - Vital Signs Vital Signs Temp Pulse Resp BP Pulse Ox 06/20/18 22:36 99.1 F 124 20 143/82 95 - Laboratory Result Diagrams: 06/21/18 00:13 06/21/18 00:13 Lab Statement: Any lab studies that have been ordered have been reviewed, and results considered in the medical decision making process. GIGU Course/Dx - Course Course Of Treatment: Pt is a 23 y/o M presenting to the ED with a chief complaint of bleeding from his rectum. The pt reports the bleeding has been on and off for quite a while but tonight it was onset around 1999. Pt has been checked for hemorrhoids and he had no external ones. Pt reports gas pain. Pt denies pain in rectum or dizziness. Examination shows no external hemorrhoids or masses, but does show a mild tinge of blood. There was no active bleeding in the emergency department. H&H is stable. Pt is asymptomatic and hemodynamically stable. Pt will be sent home with a dx of rectal pain and instructions to follow up with gastroenterology. - Diagnoses Provider Diagnoses: Rectal pain Discharge - Sign-Out/Discharge Documenting (check all that apply): Patient Departure Patient Received Moderate/Deep Sedation with Procedure: No - Discharge Plan Condition: Stable Disposition: HOME Referrals: Jer Arteaga DO [Doctor of Osteopathy] - Additional Instructions: Please follow up with gastroenterology in the next 2-3 days. Also follow up with your primary care physician in the next 2-3 days. Return to the emergency department with any new or worsening symptoms. - Attestation Statements Document Initiated by Scribe: Yes Documenting Scribe: Judy Riggs Provider For Whom Scribe is Documenting (Include Credential): Qasim Singh MD. Scribe Attestation: Judy Benoit, scribed for Qasim Singh MD. on 06/21/18 at 0147. Status of Scribe Document: Ready
[2018-06-21 00:20] LABS: ABS Basophils 0.1 10^3/ul (0-0.2); ABS Eosinophils 0.2 10^3/ul (0-0.6); ABS Monocytes 0.4 10^3/ul (0-0.8); ABS Neutrophils 8.8 10^3/ul (1.5-7.7); ABS Nucleated RBC 0 10^3/ul; Eosinophil % 1.6 %; Hematocrit 39 % (35-47); Hemoglobin 12.9 g/dl (12.0-16.0); Lymphocyte % 17.9 %; Mean Corpuscular HGB Conc 33 g/dl (31-36); Mean Corpuscular Hemoglobin 29 pg (27-31); Mean Corpuscular Volume 88 fL (80-97); Mean Platelet Volume 7.7 fL (7.4-10.4); Nucleated Red Blood Cells % 0; Platelet Count 301 10^3/ul (150-450); Red Blood Count 4.43 10^6/ul (4.00-5.40); Red Cell Distribution Width 14 % (10.5-15); White Blood Count 11.4 10^3/ul (3.5-10.8)
[2018-06-21 00:31] LABS: Activated Partial Thrombo Time 31.9 seconds (26.0-36.3); INR 0.9 (0.77-1.02)
[2018-06-21 00:37] LABS: Albumin 4.1 g/dL (3.2-5.2); Albumin/Globulin Ratio 1.3 (1-3); BUN/Creatinine Ratio 15.6 (8-20); Calcium 9.1 mg/dL (8.6-10.3); EGFR African American 112.4 (>60); EGFR Non-African American 92.9 (>60); Globulin 3.1 g/dL (2-4); Total Bilirubin 0.2 mg/dL (0.2-1.0); Total Protein 7.2 g/dL (6.4-8.9)
== END 2018-06-21 01:29 | disposition home or self-care (01) ==
LOC: ED 22:34
DX: K62.89 Other specified diseases of anus and rectum (principal); R10.9 Unspecified abdominal pain; E11.9 Type 2 diabetes mellitus without complications; Z79.4 Long term (current) use of insulin; F17.210 Nicotine dependence, cigarettes, uncomplicated
CPT/HCPCS: 36415; 80053; 85025; 85610; 85730; 99282

== ENCOUNTER 2018-08-04 14:32 | Emergency (ER) | payer BC ==
[2018-08-04 14:42] VITALS: BP 142/93
--- NOTE | 2018-08-04 15:05 | UC ---
Throat Pain/Nasal Yung HPI - HPI Summary HPI Summary: Sore throat and fever for 2 days. - History of Current Complaint Chief Complaint: UCGeneralIllness Stated Complaint: SORE THROAT Time Seen by Provider: 08/04/18 14:38 Hx Obtained From: Patient Hx Last Menstrual Period: 05/26/18 ?: No Onset/Duration: Gradual Onset Severity: Mild Pain Intensity: 3 Cough: None Associated Signs & Symptoms: Positive: Negative - Epiglottits Risk Factors Epiglottis Risk Factors: Negative - Allergies/Home Medications Allergies/Adverse Reactions: Allergies Allergy/AdvReac Type Severity Reaction Status Date / Time bupropion [From Wellbutrin] AdvReac Altered Verified 08/04/18 14:42 Mental Status oxcarbazepine AdvReac val Verified 08/04/18 14:42 [From Trileptal] PMH/Surg Hx/FS Hx/Imm Hx Previously Healthy: Yes GI/ History: Other - Has a history of gastrointestinal problems. He is scheduled for a colonoscopy on Tuesday. Other History Of: Negative For: Anticoagulant Therapy - Surgical History Surgical History: Yes Surgery Procedure, Year, and Place: wisdom teeth, double masectomy, chest reconstruction. - Family History Known Family History: Positive: Hypertension, Other - addiction/mental health issues, arthritis - Social History Alcohol Use: Weekly Substance Use Type: Cocaine, Marijuana, Other Substance Use Comment - Amount & Last Used: [email or web address] Smoking Status (MU): Current Every Day Smoker Type: eCigarettes Amount Used/How Often: 1/2-1 PPD Have You Smoked in the Last Year: No When Did the Patient Quit Smoking/Using Tobacco: 2 yrs - Immunization History Most Recent Influenza Vaccination: February 2018 Most Recent Pneumonia Vaccination: never Review of Systems All Other Systems Reviewed And Are Negative: Yes Constitutional: Positive: Fever ENT: Positive: Sore Throat Is Patient Immunocompromised?: No Physical Exam Triage Information Reviewed: Yes Appearance: Well-Appearing, No Pain Distress, Well-Nourished Vital Signs: Initial Vital Signs Temp 98.7 F 08/04/18 14:38 Pulse 93 08/04/18 14:38 Resp 18 08/04/18 14:38 BP 142/93 08/04/18 14:38 Pulse Ox 96 08/04/18 14:38 Vital Signs Reviewed: Yes Eye Exam: Normal ENT: Positive: Pharyngeal erythema, TMs normal, Tonsillar swelling, Uvula midline. Negative: Tonsillar exudate, Trismus, Muffled voice, Hoarse voice Neck: Positive: Supple, Nontender, Enlarged Nodes @ - Bilateral tonsillar lymph nodes. Respiratory: Positive: Lungs clear, Normal breath sounds, No respiratory distress, No accessory muscle use Cardiovascular: Positive: RRR, No Murmur, Pulses Normal, Brisk Capillary Refill Musculoskeletal Exam: Normal Neurological Exam: Normal Psychological Exam: Normal Skin Exam: Normal Throat Pain/Nasal Course/Dx - Course Course Of Treatment: Rapid strep test was positive. - Differential Dx/Diagnosis Provider Diagnosis: Strep pharyngitis Discharge - Sign-Out/Discharge Documenting (check all that apply): Patient Departure All imaging exams completed and their final reports reviewed: No Studies - Discharge Plan Condition: Good Disposition: HOME Prescriptions: Amoxicillin PO (*) [Amoxicillin 875 MG (*)] 875 mg PO BID 10 Days #20 tab Patient Education Materials: Strep Throat (DC) Forms: *Work Release Referrals: No Primary Care Phys,NOPCP [Primary Care Provider] - [facility] [Outside] Additional Instructions: Increase fluids, Tylenol every 4 hours for fever or Motrin every 8 hours for fever, change your toothbrush in 24 hours. Definite follow-up with your primary care provider on Tuesday if no improvement. - Billing Disposition and Condition Condition: GOOD Disposition: Home
== END 2018-08-04 15:14 | disposition home or self-care (01) ==
LOC: UCEAST 14:32
DX: J02.0 Streptococcal pharyngitis (principal); Z88.8 Allergy status to other drugs, medicaments and biological substances; F17.290 Nicotine dependence, other tobacco product, uncomplicated
CPT/HCPCS: 87651; 99212; G0463

== ENCOUNTER 2018-08-10 12:34 | Emergency (ER) | payer BC ==
[2018-08-10 12:50] VITALS: BP 142/75
--- NOTE | 2018-08-10 13:12 | ED ---
Throat Pain/Nasal Congestion - HPI Summary HPI Summary: 23-year-old female who identifies as a male presents with eye irritation for the past 2 days. He states he was diagnosed with strep on Tuesday. He states he has had a colonoscopy on Tuesday. He states that he woke up with left eye irritation that spread to the right eye. He states he's been having some watery drainage. never had this before. Denies any trauma or foreign body. no change in vision. - History of Current Complaint Chief Complaint: UCEye Time Seen by Provider: 08/10/18 12:59 - Allergies/Home Medications Allergies/Adverse Reactions: Allergies Allergy/AdvReac Type Severity Reaction Status Date / Time bupropion [From Wellbutrin] AdvReac Altered Verified 08/10/18 12:50 Mental Status oxcarbazepine AdvReac val Verified 08/10/18 12:50 [From Trileptal] PMH/Surg Hx/FS Hx/Imm Hx Endocrine/Hematology History: Reports: Hx Diabetes - insulin resistant Denies: Hx Anticoagulant Therapy, Hx Blood Disorders, Hx Thyroid Disease Cardiovascular History: Denies: Hx Hypertension Respiratory History: Reports: Hx Pneumonia Denies: Hx Asthma, Hx Chronic Obstructive Pulmonary Disease (COPD) GI History: Reports: Hx Gastrointestinal Bleed Denies: Hx Ulcer History: Denies: Hx Dialysis Musculoskeletal History: Reports: Hx Arthritis, Other Musculoskeletal History - spinal disc degeneration Denies: Hx Back Problems Sensory History: Denies: Hx Contacts or Glasses, Hx Legally Blind, Hx Deafness, Hx Hearing Aid Opthamlomology History: Denies: Hx Contacts or Glasses, Hx Legally Blind Neurological History: Denies: Hx Dementia Psychiatric History: Reports: Hx Anxiety, Hx Eating Disorder, Hx Depression, Hx Panic Disorder, Hx Post Traumatic Stress Disorder - cptsd, Hx Inpatient Treatment, Hx Community Mental Health Tx, Hx Bipolar Disorder, Hx Suicide Attempt, Hx of Violent Episodes Against Others, Hx Substance Abuse - Surgical History Surgery Procedure, Year, and Place: wisdom teeth, double masectomy, chest reconstruction. Infectious Disease History: No Infectious Disease History: Denies: Hx Hepatitis, Hx Human Immunodeficiency Virus (HIV), History Other Infectious Disease, Traveled Outside the [place] in Last 30 Days - Family History Known Family History: Positive: Hypertension, Diabetes, Other - thyroid problems , stomach ulcers - Social History Alcohol Use: Occasionally Hx Substance Use: Yes Substance Use Type: Reports: Cocaine, Marijuana, Other Substance Use Comment - Amount & Last Used: adderrall Hx Tobacco Use: Yes Smoking Status (MU): Current Every Day Smoker Type: eCigarettes Amount Used/How Often: 1/2-1 PPD Have You Smoked in the Last Year: No Review of Systems Negative: Fever Positive: Drainage, Erythema Negative: Chest Pain Negative: Shortness Of Breath All Other Systems Reviewed And Are Negative: Yes Physical Exam Triage Information Reviewed: Yes Vital Signs On Initial Exam: Initial Vitals Temp Pulse Resp BP Pulse Ox 98 F 72 15 142/75 98 08/10/18 12:47 08/10/18 12:47 08/10/18 12:47 08/10/18 12:47 08/10/18 12:47 Vital Signs Reviewed: Yes Appearance: Positive: Well-Appearing Skin: Positive: Warm, Dry Head/Face: Positive: Normal Head/Face Inspection Eyes: Positive: EOMI, DAYSI, Conjunctiva Inflammed ENT: Positive: Pharynx normal, TMs normal Respiratory/Lung Sounds: Positive: Clear to Auscultation, Breath Sounds Present Cardiovascular: Positive: Normal, RRR Neurological: Positive: Normal Psychiatric: Positive: Normal Diagnostics - Vital Signs Vital Signs Temp Pulse Resp BP Pulse Ox 08/10/18 12:47 98 F 72 15 142/75 98 - Laboratory Lab Statement: Any lab studies that have been ordered have been reviewed, and results considered in the medical decision making process. EENT Course/Dx - Course Course Of Treatment: 23-year-old female who identifies as a male presents with eye irritation for the past 2 days. He states he was diagnosed with strep on Tuesday. He states he has had a colonoscopy on Tuesday. He states that he woke up with left eye irritation that spread to the right eye. He states he's been having some watery drainage. never had this before. Denies any trauma or foreign body. no change in vision. On exam bilateral conjunctival injection. Watery discharge noted. Will treat as conjunctivitis with Polytrim. told follow up with optho if no improvement. patient understand and agrees with plan. - Differential Diagnoses Differential Diagnoses: Conjunctivitis, Corneal Abrasion, URI/Bronchitis - Diagnoses Provider Diagnoses: Conjunctivitis Discharge - Sign-Out/Discharge Documenting (check all that apply): Patient Departure All imaging exams completed and their final reports reviewed: No Studies - Discharge Plan Condition: Good Disposition: HOME Prescriptions: Polymyx/Trimethoprim OPTH* [Polytrim OPHTH*] 1 drop BOTH EYES QID #1 btl Patient Education Materials: Conjunctivitis (ED) Forms: *Work Release Referrals: [facility] [Outside] Wilner Ritter MD [Medical Doctor] - Additional Instructions: Place 1 drop in eye four times a day for 7 days Wash hands after touching eye Follow up with ophthalmology if no improvement Return to ED if develop any new or worsening symptoms - Billing Disposition and Condition Condition: GOOD Disposition: Home
== END 2018-08-10 13:17 | disposition home or self-care (01) ==
LOC: UCEAST 12:34
DX: H10.33 Unspecified acute conjunctivitis, bilateral (principal); E11.9 Type 2 diabetes mellitus without complications; F41.0 Panic disorder [episodic paroxysmal anxiety]; F32.9 Major depressive disorder, single episode, unspecified; Z88.8 Allergy status to other drugs, medicaments and biological substances; F17.290 Nicotine dependence, other tobacco product, uncomplicated
CPT/HCPCS: 99212; G0463

== ENCOUNTER 2018-11-12 18:07 | Emergency (ER) | payer BC ==
--- NOTE | 2018-11-12 18:13 | UC ---
Lower Extremity/Ankle HPI - HPI Summary HPI Summary: injured lle when jumping down off a building to get to [place]---pain in anterior and wis able to weight bear - History of Current Complaint Chief Complaint: UCLowerExtremity Stated Complaint: L LEG INJURY Time Seen by Provider: 11/12/18 18:11 Hx Obtained From: Patient Hx Last Menstrual Period: 05/26/18 ?: No Onset/Duration: Sudden Onset, Lasting Hours, Still Present Severity Initially: Moderate Severity Currently: Moderate Aggravating Factor(s): Nothing Alleviating Factor(s): Rest Able to Bear Weight: Yes - Allergies/Home Medications Allergies/Adverse Reactions: Allergies Allergy/AdvReac Type Severity Reaction Status Date / Time bupropion [From Wellbutrin] AdvReac Altered Verified 11/12/18 18:16 Mental Status oxcarbazepine AdvReac val Verified 11/12/18 18:16 [From Trileptal] Home Medications: Home Medications chlorproMAZINE TAB* [Thorazine TAB*] 10 mg PO TID 11/12/18 [History Confirmed ] PMH/Surg Hx/FS Hx/Imm Hx Previously Healthy: No Endocrine History: Diabetes Psychological History: Bipolar Disorder Other History Of: Negative For: Anticoagulant Therapy - Surgical History Surgical History: Yes Surgery Procedure, Year, and Place: wisdom teeth, double masectomy, chest reconstruction. - Family History Known Family History: Positive: Hypertension, Diabetes, Other - thyroid problems , stomach ulcers - Social History Occupation: Employed Full-time - [employer] Lives: With Family Alcohol Use: Occasionally Substance Use Type: Cocaine, Marijuana, Other Substance Use Comment - Amount & Last Used: nael Smoking Status (MU): Current Every Day Smoker Type: eCigarettes Amount Used/How Often: 1/2-1 PPD Have You Smoked in the Last Year: No When Did the Patient Quit Smoking/Using Tobacco: 2 yrs - Immunization History Most Recent Influenza Vaccination: February 2018 Most Recent Pneumonia Vaccination: never Review of Systems All Other Systems Reviewed And Are Negative: Yes Constitutional: Positive: Negative Skin: Positive: Negative Eyes: Positive: Negative ENT: Positive: Negative Respiratory: Positive: Negative Cardiovascular: Positive: Negative Gastrointestinal: Positive: Negative Genitourinary: Positive: Negative Motor: Positive: Negative Neurovascular: Positive: Negative Musculoskeletal: Positive: Arthralgia - anterior left lower eg Neurological: Positive: Negative Psychological: Positive: Negative Is Patient Immunocompromised?: No Physical Exam Triage Information Reviewed: Yes Appearance: Well-Appearing, Pain Distress - mild, Obese Vital Signs Reviewed: Yes Eye Exam: Normal ENT Exam: Normal ENT: Positive: Normal ENT inspection, Hearing grossly normal. Negative: Trismus , Muffled voice, Hoarse voice Dental Exam: Normal Neck exam: Normal Neck: Positive: Supple, Nontender Respiratory Exam: Normal Respiratory: Positive: Chest non-tender, No respiratory distress, No accessory muscle use Cardiovascular Exam: Normal Cardiovascular: Positive: RRR, Pulses Normal, Brisk Capillary Refill Musculoskeletal Exam: Normal Musculoskeletal: Positive: Strength Intact, ROM Intact, No Edema Neurological Exam: Normal Neurological: Positive: Alert, Muscle Tone Normal Psychological Exam: Normal Skin Exam: Normal Diagnostics - Radiology No standard instances Radiology Interpretation Completed By: Radiologist - no evience of fracture Lower Extremity Course/Dx - Course Course Of Treatment: Ken wrap , rest ic elevation follow with orthopedic MD prn - Differential Dx/Diagnosis Provider Diagnosis: Pain in left lower leg Discharge - Sign-Out/Discharge Documenting (check all that apply): Patient Departure All imaging exams completed and their final reports reviewed: Yes - Discharge Plan Condition: Stable Disposition: HOME Patient Education Materials: Ibuprofen (By mouth), R.I.C.E. Treatment (ED), Leg Pain (ED) Forms: *Work Release Referrals: Geronimo Young MD [Medical Doctor] - If Needed No Primary Care Phys,NOPCP [Primary Care Provider] - - Billing Disposition and Condition Condition: STABLE Disposition: Home - Attestation Statements Provider Attestation: I was available for consult. This patient was seen by the TRISTIN. The patient was not presented to, seen by, or examined by me. -Manrie
[2018-11-12 18:16] VITALS: BP 00/00
== END 2018-11-12 19:15 | disposition home or self-care (01) ==
LOC: EDSEX → UCEAST 18:07
DX: M79.662 Pain in left lower leg (principal); E11.9 Type 2 diabetes mellitus without complications; F31.9 Bipolar disorder, unspecified; F17.290 Nicotine dependence, other tobacco product, uncomplicated
CPT/HCPCS: 99212; G0463

== ENCOUNTER 2018-11-29 10:58 | Emergency (ER) | payer BC ==
[2018-11-29 11:28] VITALS: BP 135/77
--- NOTE | 2018-11-29 12:30 | UC ---
Eye Complaint HPI - HPI Summary HPI Summary: Patient is a 23-year-old transgendered male, history of diabetes, here with eye symptoms. Patient's had crusting of his bilateral eyes for the past 1.5 weeks. Patient's symptoms are worse on the right. Patient has associated itching. Patient has no redness, purulent drainage, change in vision. Patient does not wear contacts. 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 Occasions reviewed - History of Current Complaint Chief Complaint: UCEye Stated Complaint: EYE COMPLAINT Time Seen by Provider: 11/29/18 12:16 Hx Obtained From: Patient Hx Last Menstrual Period: 05/26/18 Onset/Duration: Gradual Onset Timing: Constant Severity Initially: Mild Pain Intensity: 0 - Allergies/Home Medications Allergies/Adverse Reactions: Allergies Allergy/AdvReac Type Severity Reaction Status Date / Time bupropion [From Wellbutrin] AdvReac Altered Verified 11/29/18 11:29 Mental Status oxcarbazepine AdvReac val Verified 11/29/18 11:29 [From Trileptal] PMH/Surg Hx/FS Hx/Imm Hx Previously Healthy: Yes Other History Of: Negative For: Anticoagulant Therapy - Surgical History Surgical History: Yes Surgery Procedure, Year, and Place: wisdom teeth, double masectomy, chest reconstruction. - Family History Known Family History: Positive: Hypertension, Diabetes, Other - thyroid problems , stomach ulcers , Non-Contributory - Social History Alcohol Use: Occasionally Substance Use Type: Marijuana, Other Substance Use Comment - Amount & Last Used: nael Smoking Status (MU): Current Every Day Smoker Type: eCigarettes Amount Used/How Often: 1/2-1 PPD Have You Smoked in the Last Year: No When Did the Patient Quit Smoking/Using Tobacco: 2 yrs - Immunization History Most Recent Influenza Vaccination: February 2018 Most Recent Pneumonia Vaccination: never Review of Systems All Other Systems Reviewed And Are Negative: Yes Constitutional: Negative: Fever, Chills Skin: Negative: Rash Eyes: Positive: Drainage, Eye Redness. Negative: Blurred Vision, Diplopia, Photophobia ENT: Negative: Sore Throat, Ear Ache, Nasal Discharge Respiratory: Negative: Shortness Of Breath Physical Exam - Summary Physical Exam Summary: Vital Signs Reviewed: Yes A+Ox3, no distress Eyes: Crusting at the bilateral medial canthus. Extraocular movements intact. No conjunctival injection. Pupils equal and reactive to light. No surrounding erythema ENT: Hearing grossly normal neck: supple Respiratory: Positive: No respiratory distress, No accessory muscle use Cardiovascular: skin color reflect adequate perfusion Musculoskeletal Exam: SCHULTZ x 4 without difficulty Neurological: Positive: Alert, ambulatory without difficulty Triage Information Reviewed: Yes Vital Signs: Initial Vital Signs Temp 97.6 F 11/29/18 11:24 Pulse 78 11/29/18 11:24 Resp 20 11/29/18 11:24 BP 135/77 11/29/18 11:24 Pulse Ox 99 11/29/18 11:24 Eye Complaint Course/Dx - Course Course Of Treatment: Patient is here with bilateral conjunctivitis. Patient's symptoms are consistent with bacterial etiology. Patient was prescribed Polytrim ophthalmic drops. - Differential Dx/Diagnosis Differential Diagnosis/HQI/PQRI: Conjunctivitis, Corneal Abrasion, Periorbital Cellulitis, Orbital Cellulitis, Uveitis Provider Diagnosis: Conjunctivitis Discharge - Sign-Out/Discharge Documenting (check all that apply): Patient Departure All imaging exams completed and their final reports reviewed: No Studies - Discharge Plan Condition: Stable Disposition: HOME Prescriptions: Polymyx/Trimethoprim OPTH* [Polytrim OPHTH*] 2 drop BOTH EYES Q6H 7 Days #1 btl Patient Education Materials: Conjunctivitis (ED) Forms: *Work Release Referrals: Marizol Tony DO [Primary Care Provider] - Additional Instructions: Please make sure to wash your hands frequently as your pink eye is very contagious Please use your drops as prescribed Please return if you have any concerning symptoms - Billing Disposition and Condition Condition: STABLE Disposition: Home
== END 2018-11-29 12:30 | disposition home or self-care (01) ==
LOC: EDSEX 10:58 → UCEAST 10:58
DX: H10.9 Unspecified conjunctivitis (principal); F17.210 Nicotine dependence, cigarettes, uncomplicated; F64.0 Transsexualism
CPT/HCPCS: 99212; G0463

== ENCOUNTER 2019-02-13 05:23 | Emergency (ER) | payer BC ==
[2019-02-13] MEDS ORDERED: NS 0.9% 1000 ML** 1,000 ML IV ONE (05:53)
[2019-02-13] MEDS ORDERED: Ondansetron INJ* 2 MG/ML VIAL IV ONE (05:53)
--- NOTE | 2019-02-13 05:54 | ED ---
Nausea/Vomiting/Diarrhea HPI - HPI Summary HPI Summary: Pt. is a 23 y.o male who presents to the ER for nausea, vomiting, diarrhea, and abd. pain that started last night. Pt. notes numerous episodes of vomiting and has not been able to tolerated POs. Pt. notes pain is intermittently and located to epigastric region. Pt. also notes that he was exposed to gonorrhea. Pt. notes one of his sexual partners tested positive last week. Pt denies vaginal discharge. Pt. otherwise denies recent travel or sick contacts. Sxs are moderate in severity. no current modifying factors. - History of Current Complaint Chief Complaint: EDAbdPain Stated Complaint: FEVER/NAUSEA PER PT Time Seen by Provider: 02/13/19 05:37 Hx Obtained From: Patient Hx Last Menstrual Period: 05/26/18 Pain Intensity: 9 - Allergies/Home Medications Allergies/Adverse Reactions: Allergies Allergy/AdvReac Type Severity Reaction Status Date / Time bupropion [From Wellbutrin] AdvReac Altered Verified 02/13/19 05:26 Mental Status oxcarbazepine AdvReac val Verified 02/13/19 05:26 [From Trileptal] Home Medications: Home Medications Seroquel 50 mg tab 50 mg PO DAILY 02/13/19 [History Confirmed 02/13/19] PMH/Surg Hx/FS Hx/Imm Hx Previously Healthy: Yes Endocrine/Hematology History: Reports: Hx Diabetes - type 2 dm Denies: Hx Anticoagulant Therapy, Hx Blood Disorders, Hx Thyroid Disease Cardiovascular History: Denies: Hx Hypertension Respiratory History: Reports: Hx Pneumonia Denies: Hx Asthma, Hx Chronic Obstructive Pulmonary Disease (COPD) GI History: Reports: Hx Gastrointestinal Bleed Denies: Hx Ulcer History: Denies: Hx Dialysis Musculoskeletal History: Reports: Hx Arthritis, Other Musculoskeletal History - spinal disc degeneration Denies: Hx Back Problems Sensory History: Denies: Hx Contacts or Glasses, Hx Legally Blind, Hx Deafness, Hx Hearing Aid Opthamlomology History: Denies: Hx Contacts or Glasses, Hx Legally Blind Neurological History: Denies: Hx Dementia Psychiatric History: Reports: Hx Anxiety, Hx Eating Disorder, Hx Depression, Hx Panic Disorder, Hx Post Traumatic Stress Disorder - cptsd, Hx Inpatient Treatment, Hx Community Mental Health Tx, Hx Bipolar Disorder, Hx Suicide Attempt, Hx of Violent Episodes Against Others, Hx Substance Abuse - Surgical History Surgery Procedure, Year, and Place: wisdom teeth, double masectomy, chest reconstruction. Infectious Disease History: No Infectious Disease History: Denies: Hx Hepatitis, Hx Human Immunodeficiency Virus (HIV), History Other Infectious Disease, Traveled Outside the [place] in Last 30 Days - Family History Known Family History: Positive: Hypertension, Diabetes, Other - thyroid problems , stomach ulcers , Non-Contributory - Social History Occupation: Unemployed Lives: With Family Alcohol Use: Occasionally Hx Substance Use: Yes Substance Use Type: Reports: Marijuana, Other Substance Use Comment - Amount & Last Used: adderrall Hx Tobacco Use: Yes Smoking Status (MU): Current Every Day Smoker Type: eCigarettes Amount Used/How Often: 1/2-1 PPD Have You Smoked in the Last Year: No Review of Systems Constitutional: Negative Negative: Fever ENT: Negative Cardiovascular: Negative Respiratory: Negative Positive: Abdominal Pain, Vomiting, Diarrhea Neurological: Negative All Other Systems Reviewed And Are Negative: Yes Physical Exam Triage Information Reviewed: Yes Vital Signs On Initial Exam: Initial Vitals Temp Pulse Resp BP Pulse Ox 97.2 F 81 18 154/103 97 02/13/19 05:24 02/13/19 05:24 02/13/19 05:24 02/13/19 05:24 02/13/19 05:24 Vital Signs Reviewed: Yes Appearance: Positive: Well-Appearing - Pt. sitting up in bed in NAD. Skin: Positive: Warm, Dry Head/Face: Positive: Normal Head/Face Inspection Eyes: Positive: Normal, EOMI Neck: Positive: Supple Respiratory/Lung Sounds: Positive: Clear to Auscultation, Breath Sounds Present Cardiovascular: Positive: Normal, RRR Abdomen Description: Positive: Other: - Obese. Abd. is soft without reproducible tenderness. Negative clark nign. No pain at mcbur[place] point. No guarding or rebound tenderness. Neurological: Positive: Normal, CN Intact II-III Psychiatric: Positive: Affect/Mood Appropriate Procedures - Sedation Patient Received Moderate/Deep Sedation with Procedure: No Diagnostics - Vital Signs Vital Signs Temp Pulse Resp BP Pulse Ox 02/13/19 05:24 97.2 F 81 18 154/103 97 - Laboratory Result Diagrams: 02/13/19 05:53 02/13/19 05:53 Lab Statement: Any lab studies that have been ordered have been reviewed, and results considered in the medical decision making process. Naus/Vom/Diarrhea Course/Dx - Course Course Of Treatment: Pt. with N/V/D. Afebrile and well appearing. Benign abd. exam without reproducible pain. Pt. given IV fluids and zofran. Labs show mild leukocytosis of 14. CRP minimally elevated at 11. U/A contaminated, will send for culture. Pening gc/chlamydia. On re-exam pt. is feeling much better. Tolerating POs. Pt. would like prophylactic treatment given known exposure, given PO azithromycin and rocephin. To f.u with pcp. Will return to ER for increased pain, vomting, fever, or if conerned. Pt. understands and agrees with plan. - Differential Dx/Diagnosis Differential Diagnoses - Female: Appendicitis, STD, Gastroenteritis (Viral), Gastroenteritis (Bacterial), Dehydration, Cholelithiasis Provider Diagnosis: Gastroenteritis, STD exposure Condition At Discharge: Improved Discharge ED - Sign-Out/Discharge Documenting (check all that apply): Patient Departure - Discharge Plan Condition: Improved Disposition: HOME Prescriptions: Ondansetron TAB* [Zofran 4 MG Tab*] 4 mg PO Q6H PRN #12 tab PRN Reason: Nausea Patient Education Materials: Sexually Transmitted Diseases (ED), Gastroenteritis (ED) Referrals: Marizol Tony DO [Primary Care Provider] - Additional Instructions: Follow up with PCP in 2-3 days if symptoms persist Increase fluids and rest Clear liquid diet x 24 hours Will call if gonorrhea/chlamydia testing is positive Always use sexual protection Return to ER for increased pain, vomiting, fever, or if concerned - Billing Disposition and Condition Condition: IMPROVED Disposition: Home
[2019-02-13 06:04] LABS: ABS Eosinophils 0.2 10^3/ul (0-0.6); ABS Lymphocytes 1.4 10^3/ul (1.0-4.8); ABS Monocytes 0.5 10^3/ul (0-0.8); ABS Neutrophils 11.8 10^3/ul (1.5-7.7); Eosinophil % 1.4 %; Hematocrit 40 % (35-47); Lymphocyte % 10.2 %; Mean Corpuscular HGB Conc 33 g/dL (31-36); Mean Corpuscular Hemoglobin 29 pg (27-31); Mean Corpuscular Volume 88 fL (80-97); Platelet Count 291 10^3/uL (150-450); Red Cell Distribution Width 14 % (10-15)
[2019-02-13 06:18] LABS: Urine Appearance Cloudy; Urine Bacteria Absent (Absent); Urine Bilirubin Negative (Negative); Urine Blood Negative (Negative); Urine Color Yellow; Urine Glucose Negative (Negative); Urine Ketones Negative (Negative); Urine Nitrite Negative (Negative); Urine Protein Negative (Negative); Urine Red Blood Cell Absent (Absent); Urine Specific Gravity 1.032 (1.010-1.030); Urine Squamous Epithelial Cell Present (Absent); Urine Urobilinogen Negative (Negative); Urine White Blood Cell 2+(11-20/hpf) (Absent)
[2019-02-13 06:21] LABS: Albumin 4.2 g/dL (3.2-5.2); Albumin/Globulin Ratio 1.4 (1-3); BUN/Creatinine Ratio 21.3 (8-20); C Reactive Protein 9.99 mg/L (<8.01); Calcium 9.3 mg/dL (8.6-10.3); EGFR African American 107.6 (>60); EGFR Non-African American 88.9 (>60); Potassium 3.8 mmol/L (3.5-5.0); Total Bilirubin 0.4 mg/dL (0.2-1.0); Total Protein 7.2 g/dL (6.4-8.9)
[2019-02-13 06:27] LABS: HCG Pregnancy 1.31 mIU/mL
[2019-02-13] MEDS ORDERED: Azithromycin TAB* 250 MG PO ONE (07:32)
[2019-02-13] MEDS ORDERED: cefTRIAXone VIAL(*) 250 MG VIAL IM ONE (07:32)
[2019-02-13] MEDS ORDERED: Lidocaine 1% MPF ** 5 ML VIAL IM ONE (07:32)
[2019-02-13 07:39] VITALS: BP 120/104
[2019-02-13 13:24] LABS: Chlamydia trachomatis NAA Positive (Negative); Neisseria gonorrhoeae (GC) NAA Negative (Negative)
--- NOTE | 2019-02-13 13:53 | ED ---
Imaging and Labs Follow Up Follow Up Type: Labs/Cultures Labs/Culture Result: Positive chlamydia. Patient Communication/Plan: Pt. was ordered prophylactically in ED with azithromycin and rocephin but apparently did not receive before the was discharged. I called and spoke with pt. today at 1354 and informed of results. 1gm azithromycin sent to pharmacy. Advised pt. all sexual partners need to be tested and treated. Advised to always use sexual protection. Pt. understands and agrees with plan. Provider Diagnoses: Gastroenteritis, STD exposure
== END 2019-02-13 07:38 | disposition home or self-care (01) ==
LOC: ED 05:23
DX: K52.9 Noninfective gastroenteritis and colitis, unspecified (principal); A74.9 Chlamydial infection, unspecified; Z88.8 Allergy status to other drugs, medicaments and biological substances; Z79.899 Other long term (current) drug therapy; E11.9 Type 2 diabetes mellitus without complications; F41.9 Anxiety disorder, unspecified; Z90.13 Acquired absence of bilateral breasts and nipples; F17.290 Nicotine dependence, other tobacco product, uncomplicated
CPT/HCPCS: 36415; 80053; 81003; 81015; 83690; 84702; 85025; 86140; 87086; 87491; 87591; 96361; 96374; 99282; J2405

== ENCOUNTER 2019-04-09 16:10 | Emergency (ER) | payer BC ==
[2019-04-09 16:30] LABS: ABS Eosinophils 0.1 10^3/ul (0-0.6); ABS Lymphocytes 1.3 10^3/ul (1.0-4.8); ABS Monocytes 0.5 10^3/ul (0-0.8); ABS Neutrophils 7.3 10^3/ul (1.5-7.7); Eosinophil % 1.3 %; Hematocrit 38 % (35-47); Hemoglobin 12.6 g/dL (12.0-16.0); Lymphocyte % 14.5 %; Mean Corpuscular HGB Conc 34 g/dL (31-36); Mean Corpuscular Hemoglobin 30 pg (27-31); Mean Corpuscular Volume 89 fL (80-97); Mean Platelet Volume 8.1 fL (7.4-10.4); Platelet Count 331 10^3/uL (150-450); Red Blood Count 4.25 10^6 /uL (3.70-4.87); Red Cell Distribution Width 14 % (10-15); White Blood Count 9.3 10^3/uL (3.5-10.8)
--- NOTE | 2019-04-09 16:38 | ED ---
- HPI Summary HPI Summary: 23 year old F arriving via private car from [facility] to r/o ectopic . Patient had positive test last week. LNMP 02/22/19. Has regular menstrual cycles. Developed cramping on left side several days ago, now resolved. No vaginal bleeding. Went to [facility] earlier today where she had confirmed with urinalysis and an ultrasound done which was inconclusive. Symptoms rated 0/10 in severity. Symptoms aggravated by nothing. Symptoms alleviated by nothing. Notes that she may have been several years ago but is unsure. Patient is transitioning from female to male. Not on hormone medications currently. PMHx reviewed. Surgical hx double mastectomy and wisdom teeth. Medications reviewed. - History of Current Complaint Chief Complaint: EDOBProblems Stated Complaint: R/O ECTOPIC PER PT Time Seen by Provider: 04/09/19 16:30 Hx Obtained From: Patient Onset/Duration: Started Days Ago, Still Present Timing: Constant Current Severity: None Pain Intensity: 0 Location of Pain: Left Side Aggravating Factors: Nothing Alleviating Factors: Nothing - Assessment Hx Now: No - Additional Pertinent History Primary Care Physician: [id number] - Allergies/Home Medications Allergies/Adverse Reactions: Allergies Allergy/AdvReac Type Severity Reaction Status Date / Time bupropion [From Wellbutrin] AdvReac Altered Verified 04/09/19 16:25 Mental Status oxcarbazepine AdvReac val Verified 04/09/19 16:25 [From Trileptal] Home Medications: Home Medications [place] Carbonate TAB* 600 mg PO BID 04/09/19 [History Confirmed 04/09/19] Propranolol TAB* [Inderal TAB*] 10 mg PO TID 04/09/19 [History Confirmed ] QUEtiapine TAB* [Seroquel 25 MG TAB*] 25 mg PO BEDTIME 04/09/19 [History Confirmed 04/09/19] Venlafaxine EXT RELEASE CAP* [Effexor Xr CAP*] 37.5 mg PO DAILY 04/09/19 [ History Confirmed 04/09/19] Venlafaxine EXT RELEASE CAP* [Effexor Xr CAP*] 75 mg PO DAILY 04/09/19 [History Confirmed 04/09/19] PMH/Surg Hx/FS Hx/Imm Hx Endocrine/Hematology History: Reports: Hx Diabetes - type 2 dm Denies: Hx Anticoagulant Therapy, Hx Blood Disorders, Hx Thyroid Disease Cardiovascular History: Denies: Hx Hypertension Respiratory History: Reports: Hx Pneumonia Denies: Hx Asthma, Hx Chronic Obstructive Pulmonary Disease (COPD) GI History: Reports: Hx Gastrointestinal Bleed Denies: Hx Ulcer History: Denies: Hx Dialysis Musculoskeletal History: Reports: Hx Arthritis, Other Musculoskeletal History - spinal disc degeneration Denies: Hx Back Problems Sensory History: Denies: Hx Contacts or Glasses, Hx Legally Blind, Hx Deafness, Hx Hearing Aid Opthamlomology History: Denies: Hx Contacts or Glasses, Hx Legally Blind Neurological History: Denies: Hx Dementia Psychiatric History: Reports: Hx Anxiety, Hx Eating Disorder, Hx Depression, Hx Panic Disorder, Hx Post Traumatic Stress Disorder - cptsd, Hx Inpatient Treatment, Hx Community Mental Health Tx, Hx Bipolar Disorder, Hx Suicide Attempt, Hx of Violent Episodes Against Others, Hx Substance Abuse - Surgical History Surgery Procedure, Year, and Place: wisdom teeth, double masectomy, chest reconstruction. Infectious Disease History: No Infectious Disease History: Denies: Hx Hepatitis, Hx Human Immunodeficiency Virus (HIV), History Other Infectious Disease, Traveled Outside the [place] in Last 30 Days - Family History Known Family History: Positive: Hypertension, Diabetes, Other - thyroid problems , stomach ulcers - Social History Alcohol Use: Occasionally Hx Substance Use: Yes Substance Use Type: Reports: Marijuana Substance Use Comment - Amount & Last Used: adderrall Hx Tobacco Use: Yes Smoking Status (MU): Current Every Day Smoker Type: eCigarettes Amount Used/How Often: 1/2-1 PPD Have You Smoked in the Last Year: No Review of Systems Negative: Fever Genitourinary: Negative - bleeding, Other - left sided cramping All Other Systems Reviewed And Are Negative: Yes Physical Exam - Summary Physical Exam Summary: Constitutional: Well-developed, Well-nourished, Alert. (-) Distressed Skin: Warm, Dry HENT: Normocephalic; Atraumatic Eyes: Conjunctiva normal Neck: Musculoskeletal ROM normal neck. (-) JVD, (-) Stridor, (-) Nuchal rigidity Cardio: Rhythm regular, rate normal, Heart sounds normal; Intact distal pulses; Radial pulses are 2+ and symmetric. (-) Murmur Pulmonary/Chest wall: Effort normal. (-) Respiratory distress, (-) Wheezes, (-) Rales Abd: Soft, (-) tenderness, (-) Distension, (-) Guarding, (-) Rebound Musculoskeletal: (-) Edema Lymph: (-) Cervical adenopathy Neuro: Alert, Oriented x3 Psych: Mood and affect Normal - Physical Exam Triage Information Reviewed: Yes Vital Signs Reviewed: Yes Procedures - Sedation Patient Received Moderate/Deep Sedation with Procedure: No Diagnostics - Vital Signs Vital Signs Temp Pulse Resp BP Pulse Ox 04/09/19 16:21 99 F 82 18 147/85 97 - Laboratory Lab Results: Lab Results 04/09/19 Range/Units 16:21 WBC 9.3 (3.5-10.8) 10^3/uL RBC 4.25 (3.70-4.87) 10^6 /uL Hgb 12.6 (12.0-16.0) g/dL Hct 38 (35-47) % MCV 89 (80-97) fL MCH 30 (27-31) pg MCHC 34 (31-36) g/dL RDW 14 (10-15) % Plt Count 331 (150-450) 10^3/uL MPV 8.1 (7.4-10.4) fL Neut % (Auto) 78.8 % Lymph % (Auto) 14.5 % Clay % (Auto) 5.0 % Eos % (Auto) 1.3 % Baso % (Auto) 0.4 % Absolute Neuts (auto) 7.3 (1.5-7.7) 10^3/ul Absolute Lymphs (auto) 1.3 (1.0-4.8) 10^3/ul Absolute Monos (auto) 0.5 (0-0.8) 10^3/ul Absolute Eos (auto) 0.1 (0-0.6) 10^3/ul Absolute Basos (auto) 0.0 (0-0.2) 10^3/ul Absolute Nucleated RBC 0.0 10^3/ul Nucleated RBC % 0.0 Result Diagrams: 04/09/19 16:21 04/09/19 16:21 Lab Statement: Any lab studies that have been ordered have been reviewed, and results considered in the medical decision making process. - Ultrasound Transvaginal Ultrasound Interpretation Completed By: Radiologist Summary of Ultrasound Findings: 1. There is what appears to be a gestational sac averaging 3 mm in dimension corresponding to a gestational age of 4 weeks and 6 days. There is no pole or yolk sac identified within the gestational sac. The differential diagnosis includes a gestation that is too early to visualize, spontaneous or ectopic . 2. Immediately posterior to the lower uterine segment and cervix is a cystic structure measuring 3.9 cm in greatest dimension. This is either free fluid, not unusual for a woman of reproductive age, or a adnexal cyst. Less likely this could be an extrauterine gestational sac in the setting of ectopic . I recommend close maternal follow-up, potentially with additional pelvic ultrasound imaging, and trending of the beta hCG. ED physician has reviewed this report. Course/Dx - Course Course Of Treatment: 23-year-old female female transgender patient presents with positive test. - Beta hCG in the 160s, ultrasound inconclusive. Differential includes early , versus spontaneously miscarriage versus ectopic. Abdomen soft, Hb stable, vital signs stable. Lower suspicion for ectopic. No vaginal bleeding. Patient aware that she is to return for repeat follow-up labs and possible repeat ultrasound. She will also return for abdominal pain, vaginal bleeding, or if she is concerned. - Diagnoses Provider Diagnoses: Positive test - Provider Notifications Discussed Care Of Patient With: Mariah Olivares Time Discussed With Above Provider: 18:20 Instructed by Provider To: Other - Dr. Olivares OBGYN recommended repeat hCG and possible US at the end of the week and follow up from OBGYN. Discharge ED - Sign-Out/Discharge Documenting (check all that apply): Patient Departure - Discharge Plan Condition: Stable Disposition: HOME Patient Education Materials: (ED) Referrals: Marizol Tony DO [Primary Care Provider] - Additional Instructions: You were seen in the emergency department for positive pertinency test. Your ultrasound did not show a definitive , and we cannot exclude ectopic, we recommended follow-up with OB for repeat hCG in the next 3-4 days and possible ultrasound. If any studies were not completed at the time of discharge you will be called with the relevant results. Please follow up with your primary care doctor in next 2-3 days and return to emergency department for abdominal pain, vaginal bleeding,or concerning symptoms. It was a pleasure taking care of you today. - Billing Disposition and Condition Condition: STABLE Disposition: Home - Attestation Statements Document Initiated by John: Yes Documenting Scribe: Meli Alonso Provider For Whom Scribe is Documenting (Include Credential): Jeffery Chong MD Scribe Attestation: I, Meli Alonso, scribed for Jeffery Chong MD on 04/10/19 at 0722. Scribe Documentation Reviewed: Yes Provider Attestation: The documentation as recorded by the scribe, Meli Alonso accurately reflects the service I personally performed and the decisions made by me, Jeffery Chong MD Status of Scribe Document: Viewed
[2019-04-09 16:56] LABS: Albumin 4.2 g/dL (3.2-5.2); Albumin/Globulin Ratio 1.4 (1-3); BUN/Creatinine Ratio 11.5 (8-20); Calcium 8.8 mg/dL (8.6-10.3); EGFR African American 110.7 (>60); EGFR Non-African American 91.5 (>60); Globulin 3.1 g/dL (2-4); HCG Pregnancy 168.53 mIU/mL; Potassium 3.8 mmol/L (3.5-5.0); Total Bilirubin 0.3 mg/dL (0.2-1.0); Total Protein 7.3 g/dL (6.4-8.9)
--- OUTSIDE RECORDS SUMMARY | 2019-04-09 17:25 | XMS REPORT ---
:1995 Author Organization [facility] Care Team Providers Name Role Phone AayushleliaGeniamarilee Primary Care Physician Unavailable Allergies, Adverse Reactions, Alerts Allergy Code CodeSystem Reaction Severity Criticality Status Start Substance Date Moderate Medications Medication Medication Medication Start Stop Route Dose Status Fill Code CodeSystem Date Date Instructions lithium 19771124 RxNorm 2018- oral 300 mg 2 active Take 2 carbonate 11-07 10-19 capsule capsule by twice a mouth twice a day day for 30 day(s) chlorpromazine 005492 RxNorm 2019- oral 10 mg 1 completed Take 1 tablet 09-12-27 tablet by mouth three three times a times a day as needed day for 30 day(s) lithium 19771124 RxNorm 2018- oral 300 mg completed for 30 carbonate - 06-27 capsule day(s) venlafaxine 165265 RxNorm 2018- oral 75 mg active for 30 -24 10-19 capsule, day(s) extended release 24hr lithium 19771124 RxNorm 2018- oral 300 mg completed for 30 carbonate 4-30 07-23 capsule day(s) chlorpromazine 211424 RxNorm 2018- oral 10 mg completed for 30 7- 07-23 tablet day(s) venlafaxine 125916 RxNorm 2019- oral 75 mg 1 completed Take 1 tablet 11-07 07-24 tablet by mouth once extended a day for 30 release day(s) 24hr once a day prazosin 099903 RxNorm 2019- oral 1 mg 1 active Take 1 8-20 10-19 capsule capsule by at mouth at bedtime bedtime for 30 day(s) venlafaxine 434924 RxNorm 2019- oral 75 mg completed for 30 3- 06-27 tablet day(s) chlorpromazine 009966 RxNorm 2019-0 2019- oral 10 mg 1 active Take 1 tablet 11-07 10-19 tablet by mouth twice a twice a day day as needed for 30 day(s) venlafaxine 009018 RxNorm 2018- oral 75 mg completed for 30 08-15 07-23 tablet day(s) prazosin 916714 RxNorm 2018- oral 1 mg completed for 30 10-24 08-20 capsule day(s) Problems Problem Name Code CodeSystem Alternate Alternate Start End Status Narrative Code CodeSystem Date Date Bipolar [id number] SNOMED-CT Active affective 3-22 disorder, unspecified Relevant diagnostic tests/laboratory data Narrative No Information Procedures Procedure Code CodeSystem Target Date of Status Service Device Device Device Name Site Procedure Delivery Code Name UID Location Psychotherap [id number] SNOMED-CT () 2018-09-12 complete Mental y, 30 87 d Health- minutes with [facility] patient [address] with an [facility] [address], and [facility], service [id number] (List [id number] separately in addition to the code for primary procedure) Psychotherap [id number] SNOMED-CT () 2018-12-25 complete Mental y, 45 04 d Health- minutes with [facility] patient [address], [id number] Psychotherap [id number] SNOMED-CT () 2019-01-15 complete Mental y, 45 04 d Health- minutes with [facility] patient [address], [id number] [id number] Psychotherap [id number] SNOMED-CT () 2018-11-13 complete Mental y, 45 04 d Health- minutes with [facility] patient [address], [id number] [id number] Psychotherap [id number] SNOMED-CT () 2018-11-28 complete Mental y, 45 04 d Health- minutes with [facility] patient [address], [id number] [phone] Psychotherap [id number] SNOMED-CT () 2018-12-05 complete Mental y, 45 04 d Health- minutes with [facility] patient [address], [id number] [id number] Preventive [id number] SNOMED-CT () 2018-12-06 complete Mental medicine 0 d Health- counseling [facility] and/or risk [facility] factor [address] [place] [address], (s) [facility], to an [place], individual [id number] (separate [id number] procedure); approximatel y 15 minutes Office or [id number] SNOMED-CT () 2019-01-02 complete Mental other 7 d Health- outpatient Roman visit for [address] [facility] of [place], established [id number] patient, [id number] which requires at least 2 of these 3 rocha components: An expanded problem focused history; An expanded problem focused examination; Medical decision making of [facility] Office or [id number] SNOMED-CT () 2018-11-07 complete Mental other 7 d Health- outpatient [facility] visit for [address] [place] [facility] of [place], established [id number] patient, [phone] which requires at least 2 of these 3 rocha components: An expanded problem focused history; An expanded problem focused examination; Medical decision making of [facility] Office or [id number] SNOMED-CT () 2018-09-12 complete Mental other 6 d Health- outpatient [facility] visit for [address] [place] [facility] of an [place], established [id number] patient, [phone] which requires at least 2 of these 3 rocha components: A problem focused history; A problem focused examination; Straightforw jillian medical decision making. Counselin Office or [id number] SNOMED-CT () 2018-12-05 complete Mental other 6 d Health- outpatient [facility] visit for [address] [facility] [place], established [id number] patient, [phone] which requires at least 2 of these 3 rocha components: A problem focused history; A problem focused examination; Straightforw jillian medical decision making. Counselin Office or [id number] SNOMED-CT () 2019-02-13 complete Mental other 6 d Health- outpatient [facility] visit for [address] [facility] [place], established [id number] patient, [phone] which requires at least 2 of these 3 rocha components: A problem focused history; A problem focused examination; Straightforw jillian medical decision making. Counselin Office or [id number] SNOMED-CT () 2019-03-13 complete Mental other 6 d Health- outpatient [facility] visit for [address], [facility], of an [facility] established [id number] patient, [phone] which requires at least 2 of these 3 rocha components: A problem focused history; A problem focused examination; Straightforw jillian medical decision making. Counselin SNOMED-CT () 2019-03-13 complete Mental d Health- [address], [id number] [id number] SNOMED-CT () 2018-09-12 complete Mental d [address], [id number] [id number] SNOMED-CT () 2018-07-17 complete Mental d [facility]- [address], [id number] [id number] Encounters/Encounter Diagnoses Encounter Name Encounter Diagnosis Diagnosis Diagnosis Date of Service Code Code Name CodeSystem Diagnosis Delivery Location [facility] [id number] Bipolar SNOMED-CT 2019-03-13 Behavioral Established affective Health patient 10 disorder, Clinic [address] Minutes unspecified [place], [place], [id number] Vital Signs No Information Social History Element Description Description Start End Code CodeSystem AdditionalInfo Date Date SexAssignedAtBirth Female 1995- F AdministrativeGender -24 Hospital Discharge Instructions Reason For Referral Medical Equipment FDA Assessments
--- OUTSIDE RECORDS SUMMARY | 2019-04-09 17:25 | XMS REPORT ---
:1995 Author Name [place] [address] Care Team Providers Name Role Phone Gabriela Acosta Unavailable Unavailable Aayushlelia Geniamarilee Unavailable Unavailable Allergies, Adverse Reactions, Alerts Allergy Code CodeSystem Reaction Severity Status Substance RxNorm Medications Medication Medication Medication Start Route Dose Status Fill Code CodeSystem Date Instructions RxNorm NoCurrentDosage No Longer NoCurrentFrequen Active cy lithium RxNorm 2019-0 oral 300 mg capsule No for 30 carbonate 3-22 Longer day(s) Active venlafaxine RxNorm 2019-0 oral 75 mg tablet No for 30 3-22 Longer day(s) Active chlorpromazine RxNorm 2019-0 oral 10 mg 1 tablet No Take 1 tablet 5-28 three times a Longer by mouth day Active three times a day as needed for 30 day(s) venlafaxine RxNorm 2019-0 oral 75 mg 1 tablet No Take 1 tablet 7-23 extended release Longer by mouth once 24hr once a day Active a day for 30 day(s) venlafaxine RxNorm 2019-0 oral 75 mg Active for 30 7-24 capsule,extended day(s) release 24hr chlorpromazine RxNorm 2019-0 oral 10 mg tablet No for 30 7-09 Longer day(s) Active lithium RxNorm 2019-0 oral 300 mg capsule No for 30 carbonate 4-30 Longer day(s) Active venlafaxine RxNorm 2019-0 oral 75 mg tablet No for 30 4-30 Longer day(s) Active lithium RxNorm 2019-0 oral 300 mg 2 Active Take 2 carbonate 7-23 capsule twice a capsule by day mouth twice a day for 30 day(s) chlorpromazine RxNorm 2019-0 oral 10 mg 1 tablet Active Take 1 tablet 7-23 twice a day by mouth twice a day as needed for 30 day(s) prazosin RxNorm 2019-0 oral 1 mg capsule No for 30 7-09 Longer day(s) Active prazosin RxNorm 2019-0 oral 1 mg 1 capsule Active Take 1 8-20 at bedtime capsule by mouth at bedtime for 30 day(s) Hospital Discharge Medications Medication Direction Start Date Status Indications Fill Instuctions No Discharge Medication Problems Problem Name Code CodeSystem Start Date End Date Status SNOMED-CT 2018-07-07 Active Laboratory Values/Results Test Test Code Code System Actual Result Date LOINC Procedures Procedure Name Code CodeSystem Target Site Date of Procedure SNOMED-CT () 2018-09-12 SNOMED-CT () 2018-09-12 SNOMED-CT () 2018-09-12 SNOMED-CT () 2018-11-07 SNOMED-CT () 2018-11-13 SNOMED-CT () 2018-11-28 SNOMED-CT () 2018-12-05 SNOMED-CT () 2018-12-05 SNOMED-CT () 2018-12-06 SNOMED-CT () 2018-12-25 SNOMED-CT () 2019-01-02 SNOMED-CT () 2019-01-15 SNOMED-CT () 2018-07-17 Encounter Diagnosis Code CodeSystem Description Date Finding Finding Status Code [facility] [facility] Psychotherapy - 2018--3 - Active Individual 30 min 0 SNOMED-CT Vital Signs Vitals Date Value Immunizations Vaccine Name Vaccine Code CodeSystem Date Status Social History Element Description Start Date End Date Code CodeSystem Description SNOMED-CT Hospital Discharge Instructions Reason For Referral
[2019-04-09 18:32] VITALS: BP 165/116
== END 2019-04-09 18:34 | disposition home or self-care (01) ==
LOC: ED 16:10
DX: Z32.01 Encounter for pregnancy test, result positive (principal); F17.290 Nicotine dependence, other tobacco product, uncomplicated; E11.9 Type 2 diabetes mellitus without complications; F41.9 Anxiety disorder, unspecified; F43.10 Post-traumatic stress disorder, unspecified; F64.0 Transsexualism
CPT/HCPCS: 36415; 76817; 80053; 84702; 85025; 99282

== ENCOUNTER 2020-12-02 23:55 | Inpatient (IN) ==
[2020-12-03] MEDS ORDERED: Promethazine INJ(RESTRICTED) 25 MG/ML 1 ml VIAL IM PRN (01:15)
[2020-12-03] MEDS ORDERED: Buffered Lidocaine 1% SYRIN 1 ml INTRADERM ONE (01:15)
[2020-12-03] MEDS ORDERED: Morphine 10 MG/ML VIAL (1 ml) IM PRN (01:17)
[2020-12-03 20:01] LABS: Urine Benzodiazepine Screen None Detected (None Detect); Urine Opiates Screen Presumptive Positive (None Detect)
[2020-12-04 04:40] LABS: ABS Eosinophils 0.1 10^3/ul (0-0.6); ABS Lymphocytes 2.2 10^3/ul (1.0-4.8); ABS Monocytes 0.5 10^3/ul (0-0.8); ABS Neutrophils 8.5 10^3/ul (1.5-7.7); Eosinophil % 0.8 %; Hematocrit 35 % (35-47); Hemoglobin 12.2 g/dL (12.0-16.0); Lymphocyte % 19.7 %; Mean Corpuscular HGB Conc 35 g/dL (31-36); Mean Corpuscular Hemoglobin 31 pg (27-31); Mean Corpuscular Volume 89 fL (80-97); Mean Platelet Volume 9.9 fL (7.4-10.4); Platelet Count 216 10^3/uL (150-450); Red Blood Count 3.97 10^6 /uL (3.70-4.87); Red Cell Distribution Width 13 % (10-15); White Blood Count 11.4 10^3/uL (3.5-10.8)
[2020-12-04] MEDS ORDERED: Sodium Citrate/Citric Acid LIQ 15 ML UDC ONE (04:46)
[2020-12-04] MEDS ORDERED: ceFOXitin 2 GM IVPREMIX 2 GM/50 ML BAG ONE (04:46)
[2020-12-04] MEDS ORDERED: Morphine PF AMP (0.5MG/ML) 5 MG/10 ML AMP ONE (05:18)
[2020-12-04] MEDS ORDERED: Dexamethasone IV 4 MG/ML VIAL 1 ml VIAL ONE (05:19)
[2020-12-04] MEDS ORDERED: Ondansetron 4 mg VIAL 2 MG/ML 2 ml VIAL ONE (05:19)
[2020-12-04] MEDS ORDERED: Oxytocin 10 UNITS/ML 1 ML VIAL ONE (05:19)
[2020-12-04] MEDS ORDERED: Naloxone 0.4 mg VIAL 0.4 mg/ml 1 ml VIAL IV PRN ×2 (06:09→06:11)
[2020-12-04] MEDS ORDERED: DiMENhydriNATE IV 50 mg/ml 1 ml VIAL IV PUSH PRN (06:09)
[2020-12-04] MEDS ORDERED: fentaNYL 100 mcg/2 ml 50 MCG/ML VIAL IV PRN (06:09)
[2020-12-04] MEDS ORDERED: Acetaminophen IV 1 GM/100ML 100 ML IV ONE (06:09)
[2020-12-04] MEDS ORDERED: Ondansetron 4 mg VIAL 2 MG/ML 2 ml VIAL IV PRN (06:11)
[2020-12-04] MEDS ORDERED: Scopolamine PATCH Remove NOTE PATCH OFF PRN (06:11)
[2020-12-04] MEDS ORDERED: Glycerin ADULT 2.4 gm SUPP PR PRN (06:47)
[2020-12-04] MEDS ORDERED: Dibucaine 1% OINT 28.35 GM TUBE PR PRN (06:47)
[2020-12-04] MEDS ORDERED: Witch Hazel PAD JAR TOPICAL PRN (06:47)
[2020-12-04] MEDS ORDERED: Oxytocin in LR 20 UNITS/1,000 ML BAG IVPB SCH (07:00)
[2020-12-04] MEDS ORDERED: Lactated Ringers 1000 ml BAG 1,000 ML IV SCH (07:00)
[2020-12-04] MEDS ORDERED: diPHENhydraMINE IV 50 MG/ML 1 ml VIAL (BENADRYL) IV PRN (09:59)
[2020-12-05 07:36] LABS: ABS Monocytes 0.5 10^3/ul (0-0.8); ABS Neutrophils 7.3 10^3/ul (1.5-7.7); Eosinophil % 0.5 %; Hematocrit 30 % (35-47); Hemoglobin 10.3 g/dL (12.0-16.0); Lymphocyte % 20.4 %; Mean Corpuscular HGB Conc 35 g/dL (31-36); Mean Corpuscular Hemoglobin 31 pg (27-31); Mean Corpuscular Volume 90 fL (80-97); Mean Platelet Volume 9.3 fL (7.4-10.4); Platelet Count 152 10^3/uL (150-450); Red Blood Count 3.32 10^6 /uL (3.70-4.87); Red Cell Distribution Width 13 % (10-15)
[2020-12-07] MEDS ORDERED: Scopolamine PATCH Remove NOTE PATCH OFF ONE (06:10)
[2020-12-07 07:39] VITALS: BP 125/75
== END 2020-12-07 12:20 | disposition home or self-care (01) | DRG 540 ==
LOC: MCHOBOUT 23:55 → MCHOB 12-03 11:44
PROVIDERS: ADMIT Obstetrics & Gynecology; ATTEND Obstetrics & Gynecology